=== PATIENT | male | born 1945 | race Caucasian/White ===

== ENCOUNTER 2018-10-20 08:30 | Inpatient (IN) | payer MEDICARE, MEDICAID ==
[~2018-10-20] VITALS: Ht 170.2 cm; Wt 56.2 kg
[2018-10-20 08:30] VITALS: BP 158/92
[~2018-10-20 08:30] MED LIST: ADULT LOW DOSE81 MG PO; ASPIRIN325 PO; ATIVAN1 MG PO; BRINTELLIX10 MG PO; BRINTELLIX20 MG PO; BUSPIRONE HCL10 MG PO; CELEXA40 MG PO; CENTRUM SILVER1 EAC2 PO; CIPRO500 MG PO; CLARITIN10 MG PO; COMBIVENT INH; COMBIVENT RESPIM4 GM INH; DILTIAZEM 24HR360 M1 PO; DIPHENHIST50 MG PO; FENTANYL 1100 MCG/HR TRANSDERM; FENTANYL PA50 MCG/HR TRANSDERM; FLAGYL500 MG PO; FLOMAX0.4 MG PO; FLONASE 0.05%50 MCG NASAL; MIRALAX17 GM PO; MIRALAX255 GM PO; NASONEX17 GM NASAL; NICOTINE TRANSD21 M1 TRANSDERM; OMEGA-31000 M1 PO; PERCOCET 10-321 EACH PO; PERCOCET 7.5-31 EACH PO; PLAVIX 75 MG TA75 M1 PO; PRAVACHOL40 MG; PRAVACHOL40 MG PO; SENNA-DOCUSATE1 EACH PO; ZANAFLEX4 MG PO; ZANTAC 150MG T150 MG PO; ZOFRAN ODT4 MG PO
[2018-10-20 08:44] LABS: ABSOLUTE BASOPHILS 0.1 thou/uL (0.0-0.2); ABSOLUTE EOSINOPHILS 0.1 thou/uL (0.0-0.7); ABSOLUTE MONOCYTES 0.9 thou/uL (0.0-1.2); ABSOLUTE NEUTROPHILS 11.1 thou/uL (1.6-8.1); BASOPHILS 0.9 %; EOSINOPHILS 1.1 %; HEMATOCRIT 34.9 % (42.0-52.0); HEMOGLOBIN 11.9 gm/dL (14.0-18.0); LYMPHOCYTES 7.4 %; MCH 30.9 pg (26.0-34.0); MCHC 34.2 g/dL (28.0-37.0); MCV 90.3 fL (80.0-100.0); MONOCYTES 6.6 %; MPV 5.9 fl. (7.2-11.1); NUCLEATED RBCS 0 /100WBC; PLATELET COUNT* 183 thou/uL (150-400); RBC 3.86 mil/uL (4.50-6.00); RDW-CV 15.2 % (10.5-14.5); WBC 13.3 thou/uL (4.0-11.0)
[2018-10-20 08:52] LABS: ANION GAP 7 mmol/L (7-16); BUN 11 mg/dL (7-18); CALCIUM 9.2 mg/dL (8.5-10.1); CHLORIDE 93 mmol/L (98-107); CO2 29 mmol/L (21-32); GLUCOSE 127 mg/dL (70-99); POTASSIUM 3.6 mmol/L (3.5-5.1); SODIUM 129 mmol/L (136-145)
[2018-10-20 09:03] LABS: ALBUMIN 3.9 g/dL (3.4-5.0); LIPASE 75 U/L (73-393); SGOT 14 U/L (15-37); SGPT 19 U/L (30-65); TOTAL BILIRUBIN 0.5 mg/dL (<0.1-1.0); TOTAL PROTEIN 7.8 g/dL (6.4-8.2); TROPONIN-I LEVEL <0.06 ng/mL (<0.06)
[2018-10-20] MEDS ORDERED: DURAGESIC1 EAC3 TRANSDERM (09:11)
[2018-10-20] MEDS ORDERED: PERCOCET 10-321 EACH PO (09:12)
[2018-10-20 09:14] LABS: ALKALINE PHOSPHATASE 93 U/L (46-116)
[2018-10-20] MEDS ORDERED: ZANAFLEX4 MG PO (09:14)
[2018-10-20] MEDS ORDERED: FLOMAX0.4 MG PO (09:14)
[2018-10-20] MEDS ORDERED: PRAVACHOL40 MG PO (09:15)
[2018-10-20] MEDS ORDERED: BUSPIRONE HCL10 MG PO (09:15)
[2018-10-20] MEDS ORDERED: TAZTIA XT360 M1 PO (09:16)
[2018-10-20] MEDS ORDERED: ZANTAC 150MG T150 MG PO (09:17)
[2018-10-20] MEDS ORDERED: COMBIVENT INH (09:17)
[2018-10-20] MEDS ORDERED: BRINTELLIX20 MG PO (09:17)
[2018-10-20] MEDS ORDERED: ZOFRAN ODT4 MG PO (09:18)
[2018-10-20] MEDS ORDERED: FLONASE 0.05%50 MCG NASAL (09:18)
[2018-10-20 10:32] LABS: URINE BILIRUBIN NEGATIVE (Negative); URINE BLOOD TRACE (Negative); URINE CLARITY CLEAR; URINE COLOR YELLOW; URINE GLUCOSE-RANDOM NEGATIVE (Negative); URINE KETONES NEGATIVE (Negative); URINE LEUKOCYTES-REFLEX NEGATIVE (Negative); URINE NITRITE-REFLEX NEGATIVE (Negative); URINE PROTEIN NEGATIVE (Negative); URINE SPECIFIC GRAVITY <= 1.005 (1.005-1.030); URINE UROBILINOGEN 0.2 E.U./dl (0.2-1.0)
[2018-10-20 12:53] VITALS: BP 149/76
[2018-10-20 13:00] VITALS: BP 161/72
[2018-10-20 17:38] VITALS: BP 170/67
[2018-10-20 19:40] VITALS: BP 136/60
[2018-10-21] VITALS (7 sets, daily range): BP systolic 133–176; BP diastolic 56–80
[2018-10-21 04:39] LABS: ALBUMIN 3.3 g/dL (3.4-5.0); CALCIUM 8.7 mg/dL (8.5-10.1); CREATININE 0.7 mg/dL (0.6-1.3); POTASSIUM 3.6 mmol/L (3.5-5.1); TOTAL BILIRUBIN 0.5 mg/dL (<0.1-1.0); TOTAL PROTEIN 6.8 g/dL (6.4-8.2)
[2018-10-21 12:24] LABS: ABSOLUTE BASOPHILS 0.1 thou/uL (0.0-0.2); ABSOLUTE EOSINOPHILS 0.1 thou/uL (0.0-0.7); ABSOLUTE LYMPHOCYTES 1.2 thou/uL (0.8-5.3); ABSOLUTE MONOCYTES 0.5 thou/uL (0.0-1.2); EOSINOPHILS 1.7 %; HEMATOCRIT 36.3 % (42.0-52.0); HEMOGLOBIN 12.2 gm/dL (14.0-18.0); LYMPHOCYTES 17.8 %; MCH 30.8 pg (26.0-34.0); MCHC 33.7 g/dL (28.0-37.0); MCV 91.6 fL (80.0-100.0); MONOCYTES 7.6 %; MPV 6.6 fl. (7.2-11.1); NUCLEATED RBCS 0 /100WBC; PLATELET COUNT* 167 thou/uL (150-400); POLYS 71.9 %; RBC 3.96 mil/uL (4.50-6.00); RDW-CV 14.8 % (10.5-14.5); WBC 6.9 thou/uL (4.0-11.0)
--- NOTE | 2018-10-21 16:10 | EKG ---
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 Administrator: MS : 1945 Requested By: Kush Garzon Order Number: [id number] MD: Mason Lewis Measurements Intervals Taylor Rate: 123 P: CT: QRS: -37 QRSD: 97 T: 107 QT: 353 QTc: 505 Interpretive Statements Atrial fibrillation LVH with secondary repolarization abnormality Possible anterior infarct, age indeterminate Prolonged QT interval Baseline wander in lead(s) III,aVL Compared to ECG 09/27/2015 08:14:10 Left ventricular hypertrophy now present Early repolarization now present Myocardial infarct finding now present Prolonged QT interval now present Sinus rhythm no longer present Possible ischemia no longer present Electronically Signed On 10-21-2018 16:09:50 CDT by Mason Lewis [email or web address] <ELECTRONICALLY SIGNED> By: Mason Lewis MD, [facility] 10/21/18 1609 7 7 Mason Lewis MD, [facility] /EPI
[2018-10-22 00:41] VITALS: BP 182/70
[2018-10-22 04:54] LABS: ABSOLUTE EOSINOPHILS 0.3 thou/uL (0.0-0.7); ABSOLUTE LYMPHOCYTES 1.3 thou/uL (0.8-5.3); ABSOLUTE MONOCYTES 0.5 thou/uL (0.0-1.2); ABSOLUTE NEUTROPHILS 3.7 thou/uL (1.6-8.1); BASOPHILS 0.8 %; EOSINOPHILS 4.4 %; HEMATOCRIT 32.6 % (42.0-52.0); LYMPHOCYTES 22.7 %; MCH 30.5 pg (26.0-34.0); MCHC 33.7 g/dL (28.0-37.0); MCV 90.5 fL (80.0-100.0); MONOCYTES 8.5 %; MPV 6.6 fl. (7.2-11.1); NUCLEATED RBCS 0 /100WBC; PLATELET COUNT* 156 thou/uL (150-400); POLYS 63.6 %; RDW-CV 15.1 % (10.5-14.5); WBC 5.8 thou/uL (4.0-11.0)
[2018-10-22 05:10] VITALS: BP 126/85
[2018-10-22 05:33] LABS: ALBUMIN 3.4 g/dL (3.4-5.0); CALCIUM 8.4 mg/dL (8.5-10.1); CREATININE 0.8 mg/dL (0.6-1.3); POTASSIUM 3.6 mmol/L (3.5-5.1); TOTAL BILIRUBIN 0.4 mg/dL (<0.1-1.0); TOTAL PROTEIN 6.8 g/dL (6.4-8.2)
[2018-10-22 07:00] VITALS: BP 173/98
[2018-10-22 11:30] VITALS: BP 122/60
--- NOTE | 2018-10-22 14:18 | 2DMMODE ---
[place] [address] 2 D/M-MODE ECHOCARDIOGRAM Name: WILLIAM ENCARNACION Room: [address] IN [facility]#: [id number] Admission: 10/20/18 Attend Phys: Terry Greene Discharge: Date of : 49 Date of Service: 10/22/18 1418 Report #: [id number] THIS REPORT FOR: //name// APPROVED REPORT Study performed: 10/22/2018 11:25:25 EXAM: Comprehensive 2D, Doppler, and color-flow Echocardiogram Patient Location: In-Patient Room #: [facility] Status: routine BSA: 1.65 HR: 63 bpm BP: 173/98 mmHg Rhythm: NSR Other Information Study Quality: Good Indications Aortic Valve Disease Atrial Fibrillation 2D Dimensions IVSd: 11.69 (7-11mm) LVOT Diam: 20.41 (18-24mm) LVDd: 40.20 mm PWd: 10.76 (7-11mm) Ascending Ao: 37.33 (22-36mm) LVDs: 29.05 (25-40mm) Aortic Root: 38.14 mm Volumes Left Atrial Volume (Systole) LA ESV Index: 28.80 mL/m2 Aortic Valve AoV Peak [place].: 4.30 m/s AO Peak Gr.: 73.90 mmHg LVOT Max P.07 mmHg AO Mean Gr.: 44.23 mmHg LVOT Mean P.46 mmHg LVOT Max V: 0.88 m/s AO V2 VTI: 97.56 cm LVOT Mean V: 0.55 m/s MALINDA (VTI): 0.71 cm2 LVOT V1 VTI: 21.26 cm AI [place]: 1.04 m/s2 AI PHT: 822.29 [place] [address] 2 D/M-MODE ECHOCARDIOGRAM Name: WILLIAM ENCARNACION Room: [address] IN .#: [id number] Admission: 10/20/18 Attend Phys: Terry Greene Discharge: Date of : 49 Date of Service: 10/22/18 1418 Report #: [id number] MV Mean Gr.: 1.34 mmHg E/A Ratio: 0.68 MV Decel. Time: 336.17 ms MV E Max [place].: 0.64 m/s MV PHT: 97.49 ms MVA (PHT): 2.26 cm2 TDI E/Lateral E': 7.11 E/Medial E': 10.67 Medial E' [place].: 0.06 m/s Lateral E' Rolando.: 0.09 m/s Tricuspid Valve RAP Estimate: 5.00 mmHg TR Peak Gr.: 31.88 mmHg RVSP: 36.00 mmHg PA Pressure: 36.00 mmHg Left Ventricle The left ventricle is normal size. There is anteroapical hypokinesis. Mild to moderate concentric left ventricular hypertrophy. The left ventricular systolic function is normal. The left ventricular ejection fraction is within the normal range. LVEF is 50-55%. Grade I - abnormal relaxation pattern. Right Ventricle The right ventricle is normal size. The right ventricular systolic function is normal. Atria The left atrium size is normal. The right atrium size is normal. Aortic Valve Severe aortic valve sclerosis. Mild aortic regurgitation. Severe aortic stenosis. Peak gradient of 75 mmHg Mitral Valve There is mitral annular calcification. Trace mitral regurgitation. No evidence of mitral valve stenosis. Tricuspid Valve The tricuspid valve is normal in structure. Trace tricuspid regurgitation. Mild pulmonary hypertension. Pulmonic Valve The pulmonary valve is normal in structure. There is no pulmonic [place] [address] 2 D/M-MODE ECHOCARDIOGRAM Name: WILLIAM ENCARNACION Room: [address]#: [id number] Admission: 10/20/18 Attend Phys: Terry Greene Discharge: Date of : 49 Date of Service: 10/22/18 1418 Report #: [id number] Great Vessels The aortic root is normal in size. IVC is normal in size and collapses >50% with inspiration. Pericardium There is no pericardial effusion. <Conclusion> The left ventricle is normal size. Mild to moderate concentric left ventricular hypertrophy. The left ventricular systolic function is normal. The left ventricular ejection fraction is within the normal range. LVEF is 50-55%. Grade I - abnormal relaxation pattern. The right ventricle is normal size. The left atrium size is normal. Severe aortic valve sclerosis. Mild aortic regurgitation. Severe aortic stenosis. Peak gradient of 75 mmHg There is mitral annular calcification. Trace mitral regurgitation. IVC is normal in size and collapses >50% with inspiration. There is no pericardial effusion. There is anteroapical hypokinesis. <ELECTRONICALLY SIGNED> By: Mason Lewis MD, FACC 10/22/18 1418 1418 1418 Mason Lewis MD, FACC /INF
[2018-10-22 15:37] LABS: CHOLESTEROL 133 mg/dL (<200); HDL CHOLESTEROL 55 mg/dL (>40); LDL CHOLESTEROL 67 mg/dL (<100); SERUM ASSESSMENT Clear; TC:HDL 2.4 Ratio (Not establshd); TRIGLYCERIDE 56 mg/dL (<150); VLDL 11 mg/dL (<40)
[2018-10-22 16:00] VITALS: BP 133/64
--- NOTE | 2018-10-22 18:17 | EKG ---
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1945 Requested By: Genaro Renae Order Number: [id number] Reading MD: Sridhar Hills Measurements Intervals [place] Rate: 63 P: [place]: QRS: -32 QRSD: 96 T: 90 QT: 500 QTc: 512 Interpretive Statements Atrial flutter with predominant 4:1 AV block Left ventricular hypertrophy with repolarization abnormalities Prolonged QT interval Compared to ECG 10/20/2018 08:38:03 Atrial fibrillation no longer present Electronically Signed On 10-22-2018 18:17:30 CDT by Sridhar Hills [email or web address] <ELECTRONICALLY SIGNED> By: Sridhar Hills MD, [facility] 10/22/18 1817 0556 0556 Sridhar Hills MD, [facility] /EPI
[2018-10-22 20:00] VITALS: BP 104/68
[2018-10-23] VITALS (18 sets, daily range): BP systolic 89–179; BP diastolic 40–81
--- NOTE | 2018-10-23 16:46 | EKG ---
[place] [address] ELECTROCARDIOGRAM REPORT Name: WILLIAM ENCARNACION Room: [address] ADM IN .R.#: [id number] Admission: 10/20/18 Attend Phys: Geraldine Esteban Discharge: Date of : 49 Report #: [id number] THIS REPORT FOR: //name// [facility] [place] [facility] Test Date: 2018-10-23 Test Time: 14:30:21 Pat Name: WILLIAM ENCARNACION Department: Room: [address] Gender: M Strike Planning Applications: : 1945 Requested By: Mason Lewis Order Number: [id number] Kelley MD: Mason Lewis Measurements Intervals [place] Rate: 46 P: 10 ID: 181 QRS: -21 QRSD: 97 T: 78 QT: 530 QTc: 464 Interpretive Statements Sinus bradycardia Probable LVH with secondary repol abnrm Compared to ECG 10/22/2018 05:56:57 Atrial flutter no longer present AV block, advanced (high-grade) no longer present Prolonged QT interval no longer present Electronically Signed On 10-23-2018 16:46:25 CDT by Mason Lewis [email or web address] <ELECTRONICALLY SIGNED> By: Mason Lewis MD, [facility] 10/23/18 1646 1430 1430 Mason Lewis MD, [facility] /EPI
[2018-10-24] VITALS (9 sets, daily range): BP systolic 102–192; BP diastolic 40–108
[2018-10-24 05:03] LABS: HEMATOCRIT 31.2 % (42.0-52.0); HEMOGLOBIN 10.5 gm/dL (14.0-18.0); MCH 30.6 pg (26.0-34.0); MCHC 33.6 g/dL (28.0-37.0); MCV 91.2 fL (80.0-100.0); MPV 6.5 fl. (7.2-11.1); RBC 3.42 mil/uL (4.50-6.00); RDW-CV 15.2 % (10.5-14.5); WBC 6.6 thou/uL (4.0-11.0)
[2018-10-24 05:31] LABS: ALBUMIN 3.1 g/dL (3.4-5.0); CREATININE 0.8 mg/dL (0.6-1.3); TOTAL BILIRUBIN 0.4 mg/dL (<0.1-1.0); TOTAL PROTEIN 6.1 g/dL (6.4-8.2)
--- NOTE | 2018-10-24 10:50 | EKG ---
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1945 Requested By: Claritza Aragon Order Number: [id number] Reading MD: Mason Lewis Measurements Intervals [place] Rate: 127 P: [place]: QRS: -40 QRSD: 98 T: 107 QT: 340 QTc: 495 Interpretive Statements Atrial flutter with predominantly 2:1 block LVH with secondary repolarization abnormality Anterior Q waves, possibly due to LVH Compared to ECG 10/23/2018 14:30:21 Q waves now present Sinus bradycardia no longer present Electronically Signed On 10-24-2018 10:50:18 CDT by Mason Lewis [email or web address] <ELECTRONICALLY SIGNED> By: Mason Lewis MD, [facility] 10/24/18 1050 6 6 Mason Lewis MD, [facility] /EPI
--- NOTE | 2018-10-24 15:44 | CARD ---
[address] [address] CARDIAC CATH REPORT Name: WILLIAM ENCARNACION Room: [address] IN [facility]#: [id number] Admission: 10/20/18 Attend Phys: Geraldine Esteban Discharge: Date of : 49 Report #: [id number] THIS REPORT FOR: //name// APPROVED REPORT Study performed: 10/23/2018 09:01:36 Patient Details The patient is a 73 year-old male Event Personnel Mason Lewis Computer Terminal Operator, Jaylyn Fernández RN Photoengraving Proofer Apprentice, Germán Charles LOGISTICS MANAGEMENT SPECIALIST Scrub, Estelle Carrillo RTR Monitor Procedures Performed Art Access - R femoral artery* selective coronary arteriography ; ATIYA Place w/wo Plasty Single DIAG [id number] Indication Non-STEMI Risk Factors Peripheral Vascular Disease, Hypercholesterolemia, Hypertension Admission/Lab Medications/Medications given during procedure Oxygen Nasal cannula 2 l per min, Midazolam (Versed) IV 3 mg total, Fentanyl IV 125 mcg total, Lidocaine Subcut 16 ml, Angiomax IV 8 mg per kg, Angiomax Drip IV 19.7 ml per hr, Nitroglycerin IA 200 mcg, Hydralazine (Apresoline) IV 20 mg, Plavix PO 600 mg, Aspirin PO 162 mg Procedure Narrative The patient was brought electively to the Cardiac Catheterization Laboratory and was prepped and draped in a sterile manner. The right femoral was infiltrated with 2% Lidocaine subcutaneous anesthesia. A [place] 6 FR sheath was inserted into the right femoral artery. Coronary angiography was performed using coronary diagnostic catheters. The right coronary system was accessed and visualized with a 6F JR4 catheter. The left coronary system was accessed and visualized with a 6F JL4 catheter. The patient tolerated the procedure well and there were no complications associated with the procedure. Patient demonstrated severe peripheral vascular disease and access was complicated as there was severe calcification tortuosity and stenosis throughout the aortoiliac [place] [address] CARDIAC CATH REPORT Name: WILLIAM ENCARNACION Room: [address]#: [id number] Admission: 10/20/18 Attend Phys: Geraldine Esteban Discharge: Date of : 49 Report #: [id number] ultimately able to access the central aorta and aortic root Utilizing an angled Glidewire and a JR4 diagnostic catheter for support Intraoperative Conscious Sedation Sedation start time: 11:29 Case end Time: 12:41 Fentanyl 125 mcg Versed 3 mg Fluoro Time: 22 minutes Dose: DAP 858115 cGycm2 1815 mGy Contrast Type and Amount: Visipaque 390 ml Coronary Angiography The patient's coronary anatomy is left dominant. Diagnostic Cath Left Main 0% narrowing LAD Tandem 40% mid LAD narrowings with 90% heavily calcified prominent first diagonal stenosis Circumflex 30% proximal narrowing with 40% narrowing of the proximal portion of the first marginal branch Right Coronary Nondominant vessel with 0% narrowing Left Ventriculography Left Ventriculography was not performed. Hemodynamics The aortic pressure is 203/75 mmHg with a mean of 118 mmHg. PCI Technique Lesion Anticoagulation was achieved with Angiomax. Patient was preloaded with Angiomax IV Bolus 8 mg per kg. Percutaneous coronary intervention was performed on the first diagnonal branch segment. The lesion stenosis prior to intervention was 90% with SUSAN 3 flow. A 6FR LAUNCHER JL 3.5 Guide Catheter was used to engage the LCA ostium. A ProwaterFlex 180CM Interventional Guidewire was used to cross the lesion. BALLOON DILATION A Balloon catheter Mini Trek RX 1.5 X 8 was inserted and inflated up to 8.00atm for 22seconds. Additional Inflation: 8.00atm for 11seconds. A 2nd Balloon catheter Trek RX 2.25 X 8 was inserted and inflated up 16 felicita for 16 seconds. Additional Inflation of 18 felicita for 14 seconds. A 3rd Balloon catheter NC Trek RX 2.5 X 8 was inserted and inflated up to 17 felicita for 16 seconds. Additional Inflation of 18 [place] [address] CARDIAC CATH REPORT Name: WILLIAM ENCARNACION Room: [address] IN [facility]#: [id number] Admission: 10/20/18 Attend Phys: Geraldine Esteban Discharge: Date of : 49 Report #: [id number] felicita for 10 seconds. STENT DEPLOYMENT A drug-eluting stent Kenroy RX Stent 2.0X8mm was inserted and inflated up to 18.00atm for 13seconds. Additional Inflation: 20.00atm for 12seconds. POST STENT DEPLOYMENT BALLOON DILATION A Balloon catheter NC Trek RX 2.5 X 8 was inserted and inflated up to 15.00atm for 10seconds. Additional Inflation: 16.00atm for 10seconds. Final angiography reveals 0 % stenosis with SUSAN 3 flow. Conclusion #1 significant coronary artery disease characterized by following: A tandem 40% mid LAD narrowings with 90% heavily calcified proximal first diagonal stenosis B 30% proximal circumflex proximal narrowing with 40% first marginal narrowing, this being a dominant vessel C 0 percent narrowing of the left main and nondominant right coronary artery #2 significant systolic hypertension #3 successful percutaneous coronary intervention with deployment of a drug-eluting stent at site of 90% heavily calcified first diagonal stenosis with 0% residual narrowing and SUSAN-3 flow the distal vessel #4 severe peripheral vascular disease complicating access to the central aorta and aortic root Recommendations Cardiac Risk Reduction Program Aggressive Medical Therapy Medications Administered Aspirin (any) [place] [address] CARDIAC CATH REPORT Name: WILLIAM ENCARNACION Room: [address] IN [facility]#: [id number] Admission: 10/20/18 Attend Phys: Geraldine Esteban Discharge: Date of : 49 Report #: [id number] Diagnostic Cath Approved by: Mason Lewis MD Date/Time: 10/24/2018 15:42:32 <ELECTRONICALLY SIGNED> By: Mason Lewis MD, [facility] 10/24/18 1543 1543 1543Jonathaniel Lewis MD, [facility] /INF
[2018-10-25] VITALS: BP 125/52
[2018-10-25 04:00] VITALS: BP 117/63
[2018-10-25 08:00] VITALS: BP 171/68
--- NOTE | 2018-10-25 09:57 | EKG ---
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 <ELECTRONICALLY SIGNED> By: Cee Burnham MD, [facility] 10/25/18956 8 8 Cee Burnham MD, [facility] /EPI
--- NOTE | 2018-10-25 09:57 | EKG ---
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1945 Requested By: Claritza Aragon Order Number: [id number] Reading MD: Omar Burnham Measurements Intervals [place] Rate: 92 P: 0 [place]: QRS: -35 QRSD: 107 T: 184 QT: 375 QTc: 464 Interpretive Statements Ventricular-paced complexes No further analysis attempted due to paced rhythm Compared to ECG 10/24/2018 08:17:54 Atrial flutter no longer present 2:1 AV block no longer present Left ventricular hypertrophy no longer present Early repolarization no longer present Q waves no longer present Electronically Signed On 10-25-2018 9:57:21 CDT by Omar Burnham [email or web address] <ELECTRONICALLY SIGNED> By: Cee Burnham MD, [facility] 10/25/18956 5 5 Cee Burnham MD, [facility] /EPI
[2018-10-25 10:19] VITALS: BP 103/40
[2018-10-25 11:43] VITALS: BP 164/71
[2018-10-25] MEDS ORDERED: PACERONE 200 M200 M1 PO (11:53)
[2018-10-25] MEDS ORDERED: ASPIR 8181 MG PO (11:55)
[2018-10-25] MEDS ORDERED: PLAVIX 75 MG TA75 M1 PO (11:58)
[2018-10-25 12:12] VITALS: BP 103/40
--- NOTE | 2018-10-28 14:11 | CARD ---
[address] [address] CARDIAC CATH REPORT Name: WILLIAM ENCARNACION Room: [address] IN [facility]#: [id number] Admission: 10/20/18 Attend Phys: Geraldine Esteban Discharge: 10/25/18 Date of : 49 Report #: [id number] THIS REPORT FOR: //name// APPROVED REPORT Study performed: 10/24/2018 16:42:49 Patient Status: In-Patient Room #: 211 Event Personnel: Jaylyn Fernández RN Analysis Or Research Safety Inspector, Tresa Cosme Monitor, Eduar Ybarra (Alfa) Jeana Jackson Michael Outsole Leveler Exam: Insertion of Dual Chamber Permanent Pacemaker Indications: Sick Sinus Syndrome/Tachy Wilberto Syndrome The patient is a 73 year-old male with a history of atrial fibrillation and sick sinus syndrome. Conscious Sedation Start time: 1814 End Time: 1844 Fentanyl 100 mcg Versed 3 mg Implanted Devices: Biotronik Eluna 8 DRT ProMRI, model #089171, serial #[id number] dual-chamber pulse generator. Biotronik Solia S 53, model #261402, serial #[id number] ventricular lead. Biotronik Solia S 45, model #555256, serial #[id number] atrial lead. Procedure The patient underwent informed consent. We discussed the details of the procedure including the risks, which include, but not limited to bleeding, infection, vascular damage, cardiac perforation, and pneumothorax. He understood these risks and was willing to proceed. As such, he was brought to the EP/Cardiac Catheterization laboratory in a fasting and sedated state and prepped and draped in a sterile fashion, received IV antibiotics prior to initiation of the procedure and a venogram was performed showing patency of the left axillary vein. The patient underwent conscious sedation, with no related complications. The patient was brought to the EP/Cardiac Catheterization laboratory and the left chest and shoulder were prepped and draped in a sterile manner. During this case, Fluoroscopy and visipaque 10cc were used for imaging. The left subclavian region was infiltrated with 2% [place] [address] CARDIAC CATH REPORT Name: WILLIAM ENCARNACION Room: [address]#: [id number] Admission: 10/20/18 Attend Phys: Geraldine Esteban Discharge: 10/25/18 Date of : 49 Report #: [id number] subcutaneous anesthesia. A transverse incision was made in the left upper chest cavity. The subcutaneous pocket was formed via blunt dissection. Percutaneous venous access was achieved and an introducer sheath was inserted into the left Subclavian vein. Sheaths were positions using the modified Seldinger technique Through the introducer sheaths the atrial and ventricular lead wires were positioned in the right atrial appendage and right ventricular apex respectively. Utilizing fluoroscopic guidance, the atrial and ventricular lead wires were advanced over the wires and positioned in the right atria and right ventricle respectively. Capturing and sensing thresholds were verified. Electrode Parameters P Wave: 1.40 mV R Wave: 13.70 mV Atrial Threshold: 1.20 V at 0.40 ms Ventricular Threshold: 0.8 V at 0.40 ms Atrial Resistance: 507 ohms Ventricular Resistance: 547 ohms Lower pacing rate 60 bpm. Upper tracking rate 130 bpm. Mode: DDDR. Dual Chamber The atrial and ventricular leads were then secured using 0 silk sutures. The subcutaneous pocket was irrigated with ancef antibiotic solution.The atrial and ventricular leads were attached to the appropriate receptacles on the pulse generator and set screws firmly tightened to insure adequate contact and stability. Complications The patient tolerated the procedure well and there were no complications associated with the procedure. Findings Specimens Removed: No Conclusion 1. Sick sinus syndrome with paroxysmal atrial fibrillation. 2. Successful placement of a dual-chamber pacemaker with atrial and ventricular [place] [address] CARDIAC CATH REPORT Name: WILLIAM ENCARNACION Room: [address]#: [id number] Admission: 10/20/18 Attend Phys: Geraldine Esteban Discharge: 10/25/18 Date of : 49 Report #: [id number] 1. Follow-up site check in one week. 2. Follow-up pacemaker interrogation in one to 2 months. <ELECTRONICALLY SIGNED> By: Sridhar Hills MD, FACC 10/28/18 141 10 10Michaepepper Hills MD, FACC /INF
== END 2018-10-25 13:28 | disposition home or self-care (01) | DRG 242 ==
LOC: M.ERS 08:30 → M.TBA-ER 12:03 → M.2W 12:03
PROVIDERS: Family Medicine; Registered Nurse; ADMIT Internal Medicine
PROC: 027034Z Dilation of Coronary Artery, One Artery with Drug-eluting Intraluminal Device, Percutaneous Approach (ICD-10-PCS; principal; 2018-10-23)
PROC: 4A023N7 Measurement of Cardiac Sampling and Pressure, Left Heart, Percutaneous Approach (ICD-10-PCS; 2018-10-23)
PROC: B211YZZ Fluoroscopy of Multiple Coronary Arteries using Other Contrast (ICD-10-PCS; 2018-10-23)
PROC: 0JH606Z Insertion of Pacemaker, Dual Chamber into Chest Subcutaneous Tissue and Fascia, Open Approach (ICD-10-PCS; 2018-10-24)
PROC: 02HK3JZ Insertion of Pacemaker Lead into Right Ventricle, Percutaneous Approach (ICD-10-PCS; 2018-10-24)
PROC: 02H63JZ Insertion of Pacemaker Lead into Right Atrium, Percutaneous Approach (ICD-10-PCS; 2018-10-24)
DX: I21.4 Non-ST elevation (NSTEMI) myocardial infarction (principal); E43 Unspecified severe protein-calorie malnutrition; I71.00 Dissection of unspecified site of aorta; E87.1 Hypo-osmolality and hyponatremia; I74.5 Embolism and thrombosis of iliac artery; I48.92 Unspecified atrial flutter; Z68.1 Body mass index [BMI] 19.9 or less, adult; I49.5 Sick sinus syndrome; I25.10 Atherosclerotic heart disease of native coronary artery without angina pectoris; I10 Essential (primary) hypertension; E78.5 Hyperlipidemia, unspecified; G89.29 Other chronic pain; M54.9 Dorsalgia, unspecified; K59.09 Other constipation; K21.9 Gastro-esophageal reflux disease without esophagitis; F32.9 Major depressive disorder, single episode, unspecified; I35.0 Nonrheumatic aortic (valve) stenosis; I65.22 Occlusion and stenosis of left carotid artery; I48.0 Paroxysmal atrial fibrillation; N40.1 Benign prostatic hyperplasia with lower urinary tract symptoms; R33.8 Other retention of urine; F17.210 Nicotine dependence, cigarettes, uncomplicated; D72.829 Elevated white blood cell count, unspecified; D64.9 Anemia, unspecified; I73.9 Peripheral vascular disease, unspecified; K59.00 Constipation, unspecified; I70.1 Atherosclerosis of renal artery; E86.0 Dehydration; T39.95XA Adverse effect of unspecified nonopioid analgesic, antipyretic and antirheumatic, initial encounter; Y92.89 Other specified places as the place of occurrence of the external cause; Z88.2 Allergy status to sulfonamides; Z91.81 History of falling; Z88.8 Allergy status to other drugs, medicaments and biological substances; Z79.899 Other long term (current) drug therapy; Z82.49 Family history of ischemic heart disease and other diseases of the circulatory system; Z84.89 Family history of other specified conditions; Z82.3 Family history of stroke

== ENCOUNTER 2018-11-14 14:26 | Inpatient (IN) | payer MEDICARE, MEDICAID ==
[~2018-11-14] VITALS: Ht 162.6 cm; Wt 51.3 kg
[2018-11-14] VITALS (11 sets, daily range): BP systolic 104–139; BP diastolic 51–69
[~2018-11-14 14:26] MED LIST changes: +ASPIR 8181 MG PO; +DURAGESIC1 EAC3 TRANSDERM; +PACERONE 200 M200 M1 PO; +TAZTIA XT360 M1 PO
[2018-11-14] MEDS ORDERED: PRAVACHOL40 MG PO (14:41)
[2018-11-14 15:02] LABS: HEMATOCRIT 32.5 % (42.0-52.0); HEMOGLOBIN 11.2 gm/dL (14.0-18.0); MCH 31.1 pg (26.0-34.0); MCHC 34.5 g/dL (28.0-37.0); MCV 90.3 fL (80.0-100.0); MPV 6.1 fl. (7.2-11.1); RBC 3.6 mil/uL (4.50-6.00); RDW-CV 16.7 % (10.5-14.5); WBC 5.4 thou/uL (4.0-11.0)
[2018-11-14 15:09] LABS: CALCIUM 9.1 mg/dL (8.5-10.1); POTASSIUM 4.2 mmol/L (3.5-5.1)
--- NOTE | 2018-11-14 17:20 | CARD ---
[address] [address] CARDIAC CATH REPORT Name: WILLIAM ENCARNACION Room: [address] IN [facility]#: [id number] Admission: 11/14/18 Attend Phys: Sridhar Hills MD Discharge: Date of : 49 Report #: [id number] THIS REPORT FOR: //name// APPROVED REPORT Study performed: 11/14/2018 15:44:07 Patient Status: In-Patient Room #: Exam: explantation of a dual lead pacemaker system. Indications: pacemaker generator erosion secondary to hematoma. The patient is a 73 year-old male with a history of recent dual-chamber pacemaker placement for sick sinus syndrome. Conscious Sedation Fentanyl 75.0 mcg Versed 2.0 mg PPM Rremoval Explanted Devices: Biotronik Eluna 8 DR Tpro-MRI dual-chamber pacing device Biotronik Solia S 53 atrial lead. Biotronik Solia S 60 ventricular lead. Procedure The patient underwent informed consent. We discussed the details of the procedure including the risks, which include, but not limited to bleeding, infection, vascular damage, cardiac perforation, and pneumothorax. After informed consent was obtained the patient was brought to the cardiac pacemaker lab. The area of the left chest was prepped and draped in sterile fashion. Local anesthesia was achieved with 1% lidocaine. The deep garcia did pacemaker incision was extended laterally and medially with a 15 blade scalpel. The device was easily explanted. The device was detached from the atrial and ventricular leads and discarded. The atrial and ventricular leads were then removed after detaching the leads from the pocket without difficulty. The pocket was then flushed with antibiotic solution. A sterile Aquaphor dressing was placed within the device pocket. The device pocket loosely covered with a bandage. The patient tolerated the procedure well without complication. Conclusion 1. Device erosion secondary to device pocket hematoma. 2. Device explantation with removal of the atrial [place] [address] CARDIAC CATH REPORT Name: WILLIAM ENCARNACION Room: [address] IN [facility]#: [id number] Admission: 11/14/18 Attend Phys: Sridhar Hills MD Discharge: Date of : 49 Report #: [id number] Recommendations 1. Will follow-up with wound clinic as scheduled. 2. Follow-up cardiology office 2-4 weeks. 3. Admitting for IV antibiotics overnight. 4. By mouth antibiotics times one week. <ELECTRONICALLY SIGNED> By: Sridhar Hills MD, [facility] 11/14/181718 18 18Micmichelle Hills MD, FACC /INF
--- NOTE | 2018-11-14 18:50 | NUR ---
PATIENT ADMITTED TO TELEMETRY ROOM 201. POST PACEMAKER REMOVAL. SINUS RHYTHM/ATRIAL FLUTTER ON MONITOR. VSS. CLWR. HOURLY ROUNDING IN PLACE FOR PATIENT SAFETY.
[2018-11-15] VITALS: BP 132/54; BP 166/69
--- NOTE | 2018-11-15 02:18 | NUR ---
PT ALERT ORIENTED. UP AD BRIAN. L CHEST DRSG INTACT WITH OLD BLOOD CIRCLED. NO FEVER THIS SHIFT. TELEMETRY SHOWS SB 1ST DEGREE AVB WITH A-FIB LASTING A FEW MINUTES WITH RETURN TO SB. DENIES PAIN 02/27. FENTANYL PATCH ON R SHOULDER.
[2018-11-15 04:00] VITALS: BP 155/62
[2018-11-15 07:52] VITALS: BP 167/73
--- NOTE | 2018-11-15 08:24 | NUR ---
NSR WITH 1ST DEGREE AV BLOCK. INCISION DRESSING INTACT. VSS. HOURLY ROUNDING FOR PATIENT SAFETY. ASSESSMENT CHARTED COMPLETED. CLWR.
[2018-11-15] MEDS ORDERED: KEFLEX500 M1 PO (11:34)
[2018-11-15 11:38] VITALS: BP 147/67
--- NOTE | 2018-11-15 11:39 | H ---
[place] [address] HISTORY AND PHYSICAL Name: WILLIAM ENCARNACION Room: [address] IN ..#: [id number] Admission: 11/14/18 Attend Phys: Sridhar Hills MD Discharge: Date of : 49 Report #: [id number] THIS REPORT FOR: //name// CC: Sridhar Jacobsen DATE OF SERVICE: 11/14/2018 INDICATION FOR ADMISSION: Pacemaker generator erosion. HISTORY OF PRESENT ILLNESS: The patient is a very pleasant 73-year-old gentleman who underwent permanent pacemaker placement on 10/24/2018 for sick sinus syndrome and atrial fibrillation. Postprocedure, the patient developed a moderate hematoma. The patient was followed through the office weekly. The hematoma appeared to be resolving. However, at the third followup visit, the patient's reported serosanguineous oozing from the pacemaker pocket. On cleaning the device site, there was erosion of the pocket with visualization of the device within the pocket. The patient was therefore brought into the hospital for device explantation and removal of the atrial and ventricular leads, which the patient tolerated without complication. The patient is being admitted for IV antibiotics and followup. He remains hemodynamically stable at this time. The patient has a history of coronary artery disease with recent dqn-ME-dlrnsxsey myocardial infarction. The patient had percutaneous coronary intervention with drug-eluting stent placement in a 90% heavily calcified first diagonal branch. Presently, he is having no angina. The patient also has a history of moderate aortic stenosis. Presently, he denies any chest pain or shortness of breath. PAST MEDICAL HISTORY: 1. Coronary artery disease. 2. Hypertension. 3. Hyperlipidemia. 4. Aortic stenosis. 5. History of carotid endarterectomy. 6. BPH. 7. GERD. 8. History of back surgery in 2000. CURRENT MEDICATIONS: Amiodarone 200 mg b.i.d., aspirin 81 mg daily, bupropion 10 mg 1-1/2 tablets b.i.d., Plavix 75 mg daily, diltiazem 360 mg daily, fentanyl patch 100 mcg q. 3 days, Flonase nasal spray 2 sprays b.i.d., Combivent inhaler q.i.d., Zofran 4 mg sublingual p.r.n. q. 8 hours, Percocet 10/325 mg b.i.d. p.r.n., pravastatin 40 mg at bedtime, Zantac 150 mg p.o. b.i.d., and Flomax 0.4 [place] [address] HISTORY AND PHYSICAL Name: WILLIAM ENCARNACION Room: [address] IN ..#: [id number] Admission: 11/14/18 Attend Phys: Sridhar Hills MD Discharge: Date of : 49 Report #: [id number] ALLERGIES: CODEINE, NUBAIN, SULFA, AND BACTRIM. FAMILY HISTORY: Positive for coronary artery disease. SOCIAL HISTORY: The patient smokes cigarettes daily. Alcohol use in the past. Dictation Ends Here <ELECTRONICALLY SIGNED> By: Sridhar Hills MD, FACC 11/15/18 1139 1733 1746[facility] MD, FACC /nt
--- NOTE | 2018-11-15 11:39 | H ---
[address] [address] HISTORY AND PHYSICAL Name: WILLIAM ENCARNACION Room: [address] IN .R.#: [id number] Admission: 11/14/18 Attend Phys: Sridhar Hills MD Discharge: Date of : 49 Report #: [id number] THIS REPORT FOR: //name// CC: Sridhar Jacobsen ADDENDUM SOCIAL HISTORY: The patient smokes daily. He does not drink alcohol. REVIEW OF SYSTEMS: The patient denies convulsions, seizures or focal paralysis. In general, there is no unexplained weight loss. He denies fevers. He is not having chest pain. He denies orthopnea. He has dyspnea without shortness of breath at rest. He denies melena, hematochezia, jaundice, or hepatitis. PHYSICAL EXAMINATION: VITAL SIGNS: Stable. Blood pressure is 129/59, pulse 71 and regular. GENERAL: This is a thin, pleasant gentleman in no distress. Mood and affect appropriate. HEENT: Extraocular muscles intact. Mucous membranes moist. NECK: Shows no jugular venous distention. There are no carotid bruits. CHEST: Reveals diminished breath sounds throughout without wheezes or rales. CARDIOVASCULAR: Reveals a regular rhythm. Grade 2/6 systolic ejection murmur. ABDOMEN: Reveals normal bowel sounds. The abdomen is soft and nontender. EXTREMITIES: Shows no edema. SKIN: Warm and dry. IMPRESSION AND RECOMMENDATIONS: 1. Pacemaker erosion, status post pacemaker removal with atrial and ventricular lead removal. The wound will be allowed to heal by secondary intention. The patient is being brought in to the hospital for IV antibiotics and will be sent home on p.o. antibiotics. We would consider possible device reimplantation in 2-4 weeks. 2. Sick sinus syndrome with history of paroxysmal atrial fibrillation and bradycardia. The patient is presently in sinus rhythm with a stable rhythm. We will watch on telemetry and make changes as clinically indicated. 3. Hypertension. Blood pressure adequately controlled on current regimen. 4. Dyslipidemia. Continue statin agent while in hospital. 5. Chronic tobacco use, cessation advised. 6. Coronary artery disease, presently stable. He is not having angina. 7. Aortic stenosis. Consider transcatheter aortic valve replacement [place] [id number] HISTORY AND PHYSICAL Name: WILLIAM ENCARNACION Room: [address]#: [id number] Admission: 11/14/18 Attend Phys: Sridhar Hills MD Discharge: Date of : 47 Report #: [id number] 8. Peripheral arterial disease, presently stable. 9. Hypertension. Blood pressure is stable on current medications. <ELECTRONICALLY SIGNED> By: Sridhar Hills MD, [facility] 11/15/18 1139 1737 1748[place] Effie Hills MD, FACC /nt
[2018-11-15 11:54] VITALS: BP 147/67
--- NOTE | 2018-11-16 10:14 | D ---
[facility] [address] [place] [address] DISCHARGE SUMMARY Name: WILLIAM ENCARNACION Room: [address]#: [id number] Admission: 11/14/18 Attend Phys: Sridhar Hills MD Discharge: 11/15/18 Date of : 49 Report #: [id number] THIS REPORT FOR: //name// CC: Mason Lewis MD [facility] Sridhar Jacobsen DO DATE OF SERVICE: 11/15/2018 DISCHARGE DIAGNOSES: 1. Pacemaker pocket erosion secondary to hematoma. 2. Sick sinus syndrome. 3. Paroxysmal atrial fibrillation. 4. Coronary artery disease with recent percutaneous coronary intervention. 5. Mild aortic stenosis. 6. Hypertension. 7. Hyperlipidemia. 8. Benign prostatic hypertrophy. 9. Gastroesophageal reflux disease. PROCEDURES DURING THE HOSPITALIZATION: Pacemaker explantation with atrial and ventricular lead removal. HOSPITAL COURSE: The patient was admitted electively after being found to have erosion of his pacemaker secondary to pocket hematoma. The patient was brought to the cardiac catheterization lab. The pacemaker was removed. The atrial and ventricular leads were removed. The patient was admitted to the hospital for IV antibiotics and remained stable throughout hospitalization. The wound is being packed with Aquacel and healing by secondary intention. The patient is being discharged in stable condition. DISCHARGE MEDICATIONS: 1. Amiodarone 200 mg b.i.d. 2. Aspirin 81 mg daily. 3. Bupropion 10 mg 1-1/2 tablets b.i.d. 4. Plavix 75 mg daily. 5. Diltiazem 360 mg daily. 6. Fentanyl patch 100 mcg every 3 days. 7. Flonase nasal spray 2 sprays b.i.d. 8. Combivent inhaler q.i.d. 9. Zofran 4 mg sublingual tablets every 8 hours p.r.n. 10. Percocet 10/325 one tablet b.i.d. p.r.n. 11. Pravastatin 40 mg at bedtime. 12. Zantac 150 mg b.i.d. 13. Flomax 0.4 [place] [address] DISCHARGE SUMMARY Name: WILLIAM ENCARNACION Room: [address]#: [id number] Admission: 11/14/18 Attend Phys: Sridhar Hills MD Discharge: 11/15/18 Date of : 47 Report #: [id number] DISPOSITION: The patient has been asked to follow up with the nurses in the office in 2 weeks for check of his wound. The patient has appointment to follow up with myself in early January. <ELECTRONICALLY SIGNED> By: Sridhar Hills MD, [facility] 11/16/18 1014 1210 1425[place] Effie Hills MD, FACC /nt
== END 2018-11-15 12:18 | disposition home or self-care (01) | DRG 261 ==
LOC: M.CL 14:26 → M.TBA-CV 16:52 → M.2W 16:58
PROVIDERS: ADMIT Internal Medicine Cardiovascular Disease
PROC: 02PA3MZ Removal of Cardiac Lead from Heart, Percutaneous Approach (ICD-10-PCS; principal; 2018-11-14)
PROC: 0JPT0PZ Removal of Cardiac Rhythm Related Device from Trunk Subcutaneous Tissue and Fascia, Open Approach (ICD-10-PCS; principal; 2018-11-14)
DX: T82.897A Other specified complication of cardiac prosthetic devices, implants and grafts, initial encounter (principal); E87.1 Hypo-osmolality and hyponatremia; L76.32 Postprocedural hematoma of skin and subcutaneous tissue following other procedure; I49.5 Sick sinus syndrome; I48.0 Paroxysmal atrial fibrillation; I10 Essential (primary) hypertension; E78.5 Hyperlipidemia, unspecified; F17.210 Nicotine dependence, cigarettes, uncomplicated; N40.0 Benign prostatic hyperplasia without lower urinary tract symptoms; K21.9 Gastro-esophageal reflux disease without esophagitis; Y83.8 Other surgical procedures as the cause of abnormal reaction of the patient, or of later complication, without mention of misadventure at the time of the procedure; I73.9 Peripheral vascular disease, unspecified; I35.0 Nonrheumatic aortic (valve) stenosis; I25.10 Atherosclerotic heart disease of native coronary artery without angina pectoris; Z79.82 Long term (current) use of aspirin; Z79.899 Other long term (current) drug therapy; Z79.01 Long term (current) use of anticoagulants; I25.2 Old myocardial infarction; Z95.5 Presence of coronary angioplasty implant and graft; Z88.2 Allergy status to sulfonamides; Z88.5 Allergy status to narcotic agent; Z88.8 Allergy status to other drugs, medicaments and biological substances; Z88.1 Allergy status to other antibiotic agents; Y92.89 Other specified places as the place of occurrence of the external cause

== ENCOUNTER → 2018-11-17 | Outpatient (CLI) | payer MEDICARE, MEDICAID ==
[~2018-11-17] MED LIST changes: +FUROSEMIDE 20 M20 MG PO; +KEFLEX500 M1 PO; +KLOR-CON 10 ER10 MEQ PO; +MIRALAX17 G1 PO
== END ==
LOC: M.WC 08:30
DX: T81.31XA Disruption of external operation (surgical) wound, not elsewhere classified, initial encounter (principal); L03.313 Cellulitis of chest wall; I25.10 Atherosclerotic heart disease of native coronary artery without angina pectoris; J43.9 Emphysema, unspecified; F17.200 Nicotine dependence, unspecified, uncomplicated; Z95.5 Presence of coronary angioplasty implant and graft; Z79.82 Long term (current) use of aspirin; Y92.89 Other specified places as the place of occurrence of the external cause; Y83.8 Other surgical procedures as the cause of abnormal reaction of the patient, or of later complication, without mention of misadventure at the time of the procedure

== ENCOUNTER → 2018-11-24 | Outpatient (CLI) | payer MEDICARE, MEDICAID | LOC: M.WC 05:08 | DX: T81.31XD Disruption of external operation (surgical) wound, not elsewhere classified, subsequent encounter (principal); L03.313 Cellulitis of chest wall; I25.10 Atherosclerotic heart disease of native coronary artery without angina pectoris; J43.9 Emphysema, unspecified; F17.200 Nicotine dependence, unspecified, uncomplicated; Y83.8 Other surgical procedures as the cause of abnormal reaction of the patient, or of later complication, without mention of misadventure at the time of the procedure ==

== ENCOUNTER 2018-11-30 22:09 | Inpatient (IN) | payer MEDICARE, MEDICAID ==
[~2018-11-30] VITALS: Ht 167.6 cm; Wt 57.3 kg
[~2018-11-30 22:09] MED LIST changes: -FUROSEMIDE 20 M20 MG PO; -KLOR-CON 10 ER10 MEQ PO; -MIRALAX17 G1 PO
[2018-11-30 22:44] LABS: ABSOLUTE BASOPHILS 0.1 thou/uL (0.0-0.2); ABSOLUTE EOSINOPHILS 0.2 thou/uL (0.0-0.7); ABSOLUTE LYMPHOCYTES 0.7 thou/uL (0.8-5.3); ABSOLUTE MONOCYTES 0.6 thou/uL (0.0-1.2); ABSOLUTE NEUTROPHILS 6.3 thou/uL (1.6-8.1); BASOPHILS 0.8 %; EOSINOPHILS 2.2 %; HEMATOCRIT 28.8 % (42.0-52.0); HEMOGLOBIN 10.1 gm/dL (14.0-18.0); LYMPHOCYTES 9.4 %; MCH 31.6 pg (26.0-34.0); MCV 90.1 fL (80.0-100.0); MONOCYTES 7.3 %; MPV 6.1 fl. (7.2-11.1); NUCLEATED RBCS 0 /100WBC; PLATELET COUNT* 201 thou/uL (150-400); POLYS 80.3 %; RBC 3.19 mil/uL (4.50-6.00); RDW-CV 16.4 % (10.5-14.5); WBC 7.8 thou/uL (4.0-11.0)
[2018-11-30 23:00] LABS: CALCIUM 8.2 mg/dL (8.5-10.1); CREATININE 1.1 mg/dL (0.6-1.3); POTASSIUM 4.6 mmol/L (3.5-5.1); PROTIME 10.7 Seconds (9.20-11.50)
[2018-11-30 23:11] LABS: ALBUMIN 3.6 g/dL (3.4-5.0); TOTAL BILIRUBIN 0.4 mg/dL (<0.1-1.0); TOTAL PROTEIN 6.9 g/dL (6.4-8.2)
[2018-11-30 23:14] LABS: URINE BILIRUBIN NEGATIVE (Negative); URINE BLOOD NEGATIVE (Negative); URINE CLARITY CLEAR; URINE COLOR YELLOW; URINE GLUCOSE-RANDOM NEGATIVE (Negative); URINE KETONES NEGATIVE (Negative); URINE LEUKOCYTES-REFLEX NEGATIVE (Negative); URINE NITRITE-REFLEX NEGATIVE (Negative); URINE PROTEIN NEGATIVE (Negative); URINE SPECIFIC GRAVITY <= 1.005 (1.005-1.030); URINE UROBILINOGEN 0.2 E.U./dl (0.2-1.0)
[2018-11-30 23:15] LABS: INFLUENZA A ANTIGEN Negative (Negative); INFLUENZA B ANTIGEN Negative (Negative)
[2018-11-30 23:25] LABS: BE -1.3 mmol/L (-2 to +3); PCO2 38.8 mmHg (35.0-45.0); PO2 110.7 mmHg (75.0-100.0); pH 7.397 (7.340-7.450)
[2018-12-01] VITALS (34 sets, daily range): BP systolic 95–168; BP diastolic 40–90
[2018-12-01 07:52] LABS: CALCIUM 8.7 mg/dL (8.5-10.1); CREATININE 0.8 mg/dL (0.6-1.3); MAGNESIUM 1.9 mg/dL (1.8-2.4); POTASSIUM 4.3 mmol/L (3.5-5.1)
--- NOTE | 2018-12-01 11:02 | NUR ---
CM SPEAKING WITH PT.WHEN ENTERED. PT.SAID HE HAS A CANE AND WALKER. DOESN'T USALLY NEED TO USE THEM. HE DOES NOT HAVE O2. HE IS FAIRLY INDEPENDENT MOST OF THE TIME. NO HX OF HH. SAID SHE HELPS HIM SOME WHEN HE SHOWERS. CM WILL FOLLOW FOR DISCHARGE.
--- NOTE | 2018-12-01 16:49 | EKG ---
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 Internship: [place] : 1945 Requested By: Nirmala Bucio Order Number: [id number] MD: Manoj Vázquez Measurements Intervals [place] Rate: 69 P: -39 DE: 229 QRS: -24 QRSD: 107 T: 85 QT: 424 QTc: 455 Interpretive Statements Sinus rhythm Atrial premature complex Prolonged DE interval LVH with secondary repolarization abnormality Anterior Q waves, possibly due to LVH Compared to ECG 10/25/2018 08:19:59 First degree AV block now present Left ventricular hypertrophy now present Ventricular-paced complex(es) or rhythm no longer present Electronically Signed On 12-01-2018 16:49:03 CDT by Manoj Vázquez [email or web address] <ELECTRONICALLY SIGNED> By: Manoj Vázquez MD, FACC 12/01/18 1649 13 Maonj Vázquez MD, FACC /EPI
--- NOTE | 2018-12-01 16:51 | EKG ---
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 12/01/18 1651 0043 0043 Manoj Vázquez MD, FACC /EPI
--- NOTE | 2018-12-01 17:18 | NUR ---
PATIENT REMAINS OFF BIPAP SINCE EARLY AM. TAKING PO WELL USING 3 URINALS DIURESING WELL. GAVE PERCOCET ONCE FOR LOW BACK PAIN. DENIES SOA. APPEARS COMFORTABLE.
[2018-12-02] VITALS (11 sets, daily range): BP systolic 116–133; BP diastolic 46–77
[2018-12-02 00:42] LABS: HEMATOCRIT 29.9 % (42.0-52.0); HEMOGLOBIN 10.2 gm/dL (14.0-18.0); MCHC 34.3 g/dL (28.0-37.0); MCV 90.6 fL (80.0-100.0); MPV 6.7 fl. (7.2-11.1); RBC 3.3 mil/uL (4.50-6.00); WBC 8.5 thou/uL (4.0-11.0)
[2018-12-02 00:50] LABS: CALCIUM 8.6 mg/dL (8.5-10.1); MAGNESIUM 1.9 mg/dL (1.8-2.4); POTASSIUM 3.6 mmol/L (3.5-5.1)
--- NOTE | 2018-12-02 05:20 | NUR ---
Pt rested well overnight. Medicated once for c/o chronic back pain. States he takes Miralax daily at home for constipation, and would like to start taking it today while in hospital. O2 weaned from 5L to 2L per NC; O2 sats mid to upper 90s. Reports feeling "much better" than when he was admitted to hospital. VSS. Currently SR with 1st degree AVB per monitor, HR 60s, but has been in Afib for much of the shift. States he is hopeful of being discharged soon. Will continue to monitor.
--- NOTE | 2018-12-02 08:02 | CON ---
[address] [address] CONSULTATION Name: WILLIAM ENCARNACION Room: [address] IN M.R.#: [id number] Admission: 11/30/18 Attend Phys: Anastacia Rosado Discharge: Date of : 49 Report #: [id number] THIS REPORT FOR: //name// CC: Anastacia Bunch REQUESTING PHYSICIAN: Germán Benson MD. REASON FOR CONSULTATION: Respiratory failure, on BiPAP. DISCUSSION: The patient is a 73-year-old man who was admitted after presenting to the Emergency Department yesterday evening. He was having increased shortness of breath, was feeling lightheaded. Did not have any true syncope. A long history of tobacco abuse, currently about 10 cigarettes per day. In the past, smoked of a pack per day. He is not on O2 at home. He does not have a nebulizer. He was evaluated in the ED and was tachypneic and tachycardic, was placed on BiPAP. Subsequently, he was transferred over to the Intensive Care Unit. When I saw him earlier this morning, he was still on the BiPAP. However, he was feeling better. He was able to get some rest. He has had some cough at home, but denies bringing up much sputum. Denies any chest pain. Do note he has been diuresing well since he has received some IV Lasix. PAST MEDICAL HISTORY: Remarkable for atrial flutter, was started on amiodarone last month when he was here. He had a prior carotid endarterectomy, hypertension, dyslipidemia. He has been afebrile overnight. Has been diuresing well. FiO2 was decreased on the BiPAP. After I saw him this morning initially, he was taken off the BiPAP, transitioned over to nasal cannula. Was quite comfortable on that without dyspnea. HOME MEDICATIONS: Have been Flomax, Zanaflex, BuSpar, diltiazem, fentanyl patch, p.r.n. Percocet, Zantac, Trintellix, Combivent inhaler, Flonase nasal spray, amiodarone currently at 200 mg twice a day, baby aspirin, Plavix and pravastatin. SOCIAL HISTORY: Smoker as noted. FAMILY HISTORY: Positive for heart disease. REVIEW OF SYSTEMS: ROS was done. Note positives above. Had been getting weaker, more short of breath. Has had some diarrhea. Appetite falling [place], [place] [address] CONSULTATION Name: WILLIAM ENCARNACION Haily Room: [address] IN [facility]#: [id number] Admission: 11/30/18 Attend Phys: Anastacia Rosado Discharge: Date of : 47 Report #: [id number] denies any actual nausea or vomiting. Has felt lightheaded. However, no true syncope. No recent falls. Was using his Combivent inhaler more at home, but really was not helping. PHYSICAL EXAMINATION: GENERAL APPEARANCE: Chronically ill-appearing man. He is somewhat thin. He is alert and responsive. He is in no acute distress. Initially was on the BiPAP when I saw him. He was seen again later this morning once the BiPAP was off and he was in no acute distress. Thin man. HEENT: Head is normocephalic. Sclerae nonicteric. Mucous membranes were dry from the BiPAP. NECK: Muscles well developed. Neck veins are little prominent. No supraclavicular adenopathy. HEART: Tones distant, but generally regular. He had 2/6 systolic murmur. No S3 was heard. LUNGS: Reveal breath sounds to be diminished. He has a few faint crackles heard. Excursion is equal. Few rhonchi, but no true wheezing. ABDOMEN: Soft without appreciable hepatosplenomegaly. There is no guarding or rebound tenderness. EXTREMITIES: Has no clubbing. Lower extremities are negative for any significant edema. There was no calf tenderness noted. SKIN: Warm and dry. NEUROLOGIC: He is alert and oriented x 3, spontaneously moving all extremities. LABORATORY AND X-RAY FINDINGS: Chest x-ray done revealed prominence of interstitial markings and infiltrates bilaterally. When he was here last month, some of the interstitial changes were noted, but certainly to a much lesser degree in what they are currently. A CT angiogram was done of his chest last night. No pulmonary emboli were seen. Does have small pleural effusions noted. Does have bilateral interstitial infiltrates noted. No consolidative changes were seen. Echocardiogram done a month ago showed preserved systolic function with an EF of 50%-55%. Did have grade 1 diastolic dysfunction. Had LVH. RV was normal. He does have severe aortic stenosis. Peak gradient was 75 mmHg. He had trace mitral regurgitation. Mild pulmonary hypertension. His chemistry, BUN is 9, creatinine 0.8, potassium is 4.3, sodium was initially 125 up to 131 today. ProBNP just over 1700. Thyroid studies are normal. White blood cell count 7800, hemoglobin 10.1, hematocrit 28.8, platelets were normal. Influenza screen was negative. Arterial blood gas done earlier this morning revealed a pH 7.397, pCO2 of 39, pO2 111, bicarbonate 23 with a saturation of 94%. Carboxyhemoglobin was 3.7. IMPRESSION: 1. Acute respiratory failure. Primarily hypoxemia is better this morning. Following excellent diuresis. Some of this could be infectious, so clinically acts more like fluid. 2. Bilateral interstitial infiltrates. Have worsened relative to early last [facility] [address] [place] [address] CONSULTATION Name: WILLIAM ENCARNACION Room: [address] IN M.R.#: [id number] Admission: 11/30/18 Attend Phys: Anastacia condon los Ogilvie Discharge: Date of : 49 Report #: [id number] month. Most likely is fluid. Do note, he was started on amiodarone last month. There is a possibility, some of this could represent amiodarone toxicity but appears to be responding well to the diuretics. 3. History of chronic obstructive pulmonary disease, may have a component of underlying obstructive lung disease. 4. Ongoing tobacco abuse. 5. Severe aortic stenosis. RECOMMENDATIONS: 1. I will leave off BiPAP as tolerated, use FiO2 and wean as able. 2. Return to BiPAP p.r.n. as needed. 3. Input from Cardiology in regards to his valve status. It is not clear when and if he may or may not be a candidate for percutaneous repair. 4. Ongoing tobacco abuse, counseled in regards to quitting. <ELECTRONICALLY SIGNED> By: Mis Wang MD 12/02/18 0802 1302 135Vandana Wang MD /yana
--- NOTE | 2018-12-02 11:47 | NUR ---
WOUND CARE NOTE: CONSULT RECEIVED FOR EXISTING SURGICAL WOUND PATIENT PRESENTS WITH A FULL THICKNESS ULCERATION TO THE LEFT CHEST WALL WHERE A PERMANENT PACE MAKER WAS REMOVED DUE TO NON-HEALING WOUND EDGES. WOUND MEASURES 1.9X1X0.5. RED, MOIST, GRANULAR WOUND BED. KATIE-WOUND INTACT. WOUND APPEARS TO BE HEALING WELL. CLEANSED WITH WOUND CLEANSER, PATTED DRY. PACKED WITH AQUACEL AG AND SECURED WITH A BORDERED FOAM. PATIENT DENIES PAIN TO SITE. EDUCATED ON CONTINUING WITH CURRENT WOUND CARE AT HOME IT APPEARS TO BE HEALING WELL. RECOMMEND CONTINUE WITH CURRENT WOUND CARE ORDERS (AQUACEL AG AND BORDERED FOAM DAILY) ENCOURAGE GOOD NUTRTION/HYDRATION ENCOURAGE SMOKING CESSATION FOLLOW UP IN WOUND CENTER UPON DISCHARGE-SEES DR. FUNG
--- NOTE | 2018-12-02 13:37 | EKG ---
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1945 Requested By: Manoj Vázquez Order Number: [id number] Kelley MD: Sridhar Hills Measurements Intervals [place] Rate: 90 P: 101 MT: 232 QRS: -5 QRSD: 106 T: 115 QT: 320 QTc: 392 Interpretive Statements Sinus rhythm Prolonged MT interval Consider left atrial enlargement LVH with secondary repolarization abnormality Anterior ST elevation, probably due to LVH Compared to ECG 12/01/2018 00:43:30 First degree AV block now present ST (T wave) deviation now present Ectopic atrial tachycardia, unifocal no longer present Myocardial infarct finding no longer present Electronically Signed On 12-02-2018 13:37:17 CDT by Sridhar Hills [email or web address] <ELECTRONICALLY SIGNED> By: Sridhar Hills MD, FACC 12/02/18 1337 Sridhar Hills MD, FACC /EPI
--- NOTE | 2018-12-02 13:40 | CON ---
[address] [address] CONSULTATION Name: WILLIAM ENCARNACION Room: [address] IN M.R.#: [id number] Admission: 11/30/18 Attend Phys: Anastacia Rosado Discharge: Date of : 49 Report #: [id number] THIS REPORT FOR: //name// CC: Anastacia Hensley DO DATE OF SERVICE: 12/01/2018 CARDIOLOGY CONSULTATION HISTORY OF PRESENT ILLNESS: The patient is a 73-year-old white male who I was asked to see in the hospital today after complained of being short of breath. The patient has a long history of hypertension and smoking. He has had previous carotid endarterectomy. He presented to [facility] in October with nausea and was found to be in atrial flutter. His troponin was borderline elevated and Dr. Lewis performed a cardiac catheterization on 10/23. He was found to have a 90% stenosis of a diagonal branch. He then had a single drug-eluting stent placed. He developed atrial flutter and was seen by Dr. Hills. He was placed on amiodarone and diltiazem. He developed episode of bradycardia and Dr. Hills recommended a permanent pacemaker, which was performed in October. However, he was discharged on Plavix and developed a hematoma over the pacemaker pocket. Because of the increasing hematoma, Dr. Hills eventually had to perform evacuation of the hematoma and removal of a permanent pacemaker. The patient was then discharged. He had an echocardiogram that showed an ejection fraction of 55%. There was evidence of severe aortic stenosis, peak gradient [address] Hills pointed out the patient may eventually require TAVR in the future. The patient was discharged, but had to be admitted last night complaining of shortness of breath. Cardiology consultation requested. He denies any significant chest pain, palpitation, syncope. He has had edema. PAST MEDICAL HISTORY: Otherwise significant for back surgery, hand surgery. He has a history of hypertension, hyperlipidemia. No history of diabetes. MEDICATIONS: Consists of amiodarone, aspirin, Plavix, BuSpar, diltiazem, fentanyl patch, Combivent, pravastatin, Flomax. He has been on Chantix. ALLERGIES: HE HAS INTOLERANCE TO BACTRIM AND CODEINE. FAMILY HISTORY: His father of heart disease. SOCIAL HISTORY: He is a retired young. Smokes half pack of cigarettes a day, has a history of alcohol abuse up to a fifth of whiskey a day. [place] [address] CONSULTATION Name: WILLIAM ENCARNACION Room: [address] IN ..#: [id number] Admission: 11/30/18 Attend Phys: Anastacia Rosado Discharge: Date of : 49 Report #: [id number] REVIEW OF SYSTEMS: He has had no history of stroke, asthma, peptic ulcer disease, liver disease, kidney disease, cancer, psychiatric illness, chronic skin condition. He has a history of left iliac artery occlusion. PHYSICAL EXAMINATION: GENERAL: Revealed an elderly male, lying in bed, appeared in no distress. VITAL SIGNS: He had a blood pressure of 120/60, pulse is 80 and irregular. HEENT: Mucous membranes are moist. NECK: Veins appeared mildly distended. CHEST: Revealed distant breath sounds. CARDIOVASCULAR: Irregular rhythm, grade 4 systolic ejection murmur. ABDOMEN: Soft. EXTREMITIES: Had trace edema. SKIN: Cool and dry. LABORATORY DATA: His ECG appears to show an atrial tachycardia with a controlled ventricular response rate. His lab work, BUN 10, creatinine 0.8, hemoglobin 10.5. TSH in October was 1.6. IMPRESSION AND RECOMMENDATIONS: 1. Atrial tachycardia. The patient is on amiodarone. The patient is not very good candidate for anticoagulation. 2. Severe aortic stenosis. 3. Coronary artery disease. Recent stent. Continue aspirin and Plavix. 4. Previous carotid endarterectomy. 5. Peripheral arterial disease with previous occlusion of left iliac artery. 6. Hyperlipidemia. The patient is on a statin drug. 7. Chronic back pain. 8. Tobacco abuse. 9. History of alcohol abuse. The patient no longer abuses alcohol. 10. Previous hematoma of the pacemaker pocket. If he develops symptomatic bradycardia, he would require reinsertion of a pacemaker. <ELECTRONICALLY SIGNED> By: Manoj Vázquez MD, FACC 12/02/18 1340 1343 1437Davijoanna Vázquez MD, FACC /nt
--- NOTE | 2018-12-02 14:21 | NUR ---
PATIENT UPIN CHAIR AND AMBULATING.DENIES SOA. ON ROOM AIR. TAKING PO WELL. USING IS AND FLUTTER VALVE FREQUENTLY. REPORT GIVEN TO MIGUEL GARCÍA.
--- NOTE | 2018-12-02 18:09 | NUR ---
PT ARRIVED TO UNIT VIA WHEELCHAIR, REPORT TAKEN FROM ICU NURSE RAQUEL CONTRERAS. THIS NURSE AGREES WITH FULL ASSESSMENT OF PT MADE BY PRIOR NURSE. PT ORIENTED TO CALL LIGHT AND ROOM, HOURLY ROUNDINGS COMPLETED.
[2018-12-02] MEDS ORDERED: MIRALAX17 G1 PO (20:06)
[2018-12-03] VITALS: BP 131/67
[2018-12-03 04:00] VITALS: BP 137/65
--- NOTE | 2018-12-03 05:11 | NUR ---
ASSUMED CARE OF PT AFTER REPORT AT 1930. PT A&OX4. VSS. PHYSICAL ASSESSMENT COPLETED AND STARTED. PT TRACING ASR/1ST DEG/PACS ON TELE. PT UPADLIB TO RESTROOM. PT PLACED ON NOCTURNAL OXIMETER BY RT. PT O2 SATS ON 80'S. HOOKED PT TO O2 AT 2L NC. PT COMPLAINED OF HEADACHE & SORETHROAT- MEDS GIVEN PER APR. CALL LIGHT WITHIN REACH.
[2018-12-03 05:29] LABS: CALCIUM 8.8 mg/dL (8.5-10.1); CREATININE 0.9 mg/dL (0.6-1.3); MAGNESIUM 1.9 mg/dL (1.8-2.4); POTASSIUM 3.7 mmol/L (3.5-5.1)
[2018-12-03 07:50] VITALS: BP 138/63
[2018-12-03] MEDS ORDERED: FUROSEMIDE 20 M20 MG PO (10:09)
[2018-12-03] MEDS ORDERED: KLOR-CON 10 ER10 MEQ PO (10:09)
--- NOTE | 2018-12-03 10:30 | NUR ---
ASSUMED CARE OF PT AT 0730. PT SITTING AT EDGE OF BED WAITING FOR BREAKFAST. PT A&0X4, COMPLAINS OF PAIN TO HEAD AND BACK. TREATED WITH PRN OXYCODONE WITH RELIEF. TRACING SR WITH FIRST DEGREE ON THE INSURANCE SALES REPRESENTATIVE. ON 2L NC SAT 93%. PT DENIES ANY SHORTNESS OF BREATH AT THIS TIME. PT UP AD BRIAN IN ROOM. PT STATES HE HASNT HAD A BOWEL MOVEMENT IN 3 DAYS-PRN MIRALAX AND COLACE GIVEN. REFER TO EMAR. PT GOAL FOR TODAY IS DISCHARGE PLANNING TO HOME, OBTAIN RT SAT AND EXERCISE, PAIN MGMT AND WOUND CARE TO LEFT CHEST. AM ASSESSMENT CHARTED. MEDICATIONS PER APR, PT REPOSITIONS SELF. HOURLY ROUNDING OBSERVED. BED IN LOW POSITION. CALL LIGHT WITHIN REACH. WILL CONTINUE PLAN OF CARE.
--- NOTE | 2018-12-03 11:31 | NUR ---
CHF MEDICATION DISCHARGE EDUCATION: PATIENT WAS PROVIDED AN EDUCATION HANDOUT. THE MEDICATION FUROSEMIDE WAS DISCUSSED REGARDING HOW TO TAKE, SIDE EFFECTS, AND HOW IT WORKS. ALL QUESTIONS AND CONCERNS WERE ADDRESSED. THANK YOU.
[2018-12-03 12:00] VITALS: BP 150/59
--- NOTE | 2018-12-03 12:25 | NUR ---
Pt discharging to home today. Pt requires home o2, faxed referral to Ebonie at [facility], tank should be delivered within the hour. No further needs.
--- NOTE | 2018-12-03 13:37 | NUR ---
DISCHARGE ORDERS RECEIVED. DISCHARGE INSTRUCTIONS, CARE NOTES AND FOLLOW UP APPTS GIVEN TO PT. PT COMMUNICATES UNDERSTANDING OF DISCHARGE TEACHING. BOTH IV'S AND PRODUCTION WELDING SUPERVISOR REMOVED. PT DISCHARGED WITH ALL BELONGINGS AND PAPERWORK VIA WHEELCHAIR WITH NURSING STAFF TO SPOUSE OWN PERSONAL VEHICLE. DISCHARGE PHOTO TAKEN AND DRESSING CHANGED TO LEFT CHEST. PT DISCHARGED HOME WITH OXYGEN. OXYGEN TANK DELIVERED TO HOSPITAL PRIOR TO DISCHARGE.
== END 2018-12-03 13:38 | disposition home or self-care (01) | DRG 196 ==
LOC: M.ERS 22:09 → M.ICU 23:30 → M.TBA-ER 23:30 → M.ICU 12-01 01:50 → M.2W 12-02 14:51
PROVIDERS: Emergency Medicine; Internal Medicine; ADMIT Family Medicine
PROC: 5A09357 Assistance with Respiratory Ventilation, Less than 24 Consecutive Hours, Continuous Positive Airway Pressure (ICD-10-PCS; principal; 2018-12-01)
DX: J84.9 Interstitial pulmonary disease, unspecified (principal); J96.01 Acute respiratory failure with hypoxia; I50.33 Acute on chronic diastolic (congestive) heart failure; E87.1 Hypo-osmolality and hyponatremia; J44.1 Chronic obstructive pulmonary disease with (acute) exacerbation; I11.0 Hypertensive heart disease with heart failure; K21.9 Gastro-esophageal reflux disease without esophagitis; E78.5 Hyperlipidemia, unspecified; N40.0 Benign prostatic hyperplasia without lower urinary tract symptoms; F32.9 Major depressive disorder, single episode, unspecified; I35.0 Nonrheumatic aortic (valve) stenosis; F17.210 Nicotine dependence, cigarettes, uncomplicated; I25.10 Atherosclerotic heart disease of native coronary artery without angina pectoris; I73.9 Peripheral vascular disease, unspecified; G89.29 Other chronic pain; M54.9 Dorsalgia, unspecified; F10.21 Alcohol dependence, in remission; I27.20 Pulmonary hypertension, unspecified; I48.0 Paroxysmal atrial fibrillation; D64.9 Anemia, unspecified; R63.4 Abnormal weight loss; I49.1 Atrial premature depolarization; K59.00 Constipation, unspecified; Z79.899 Other long term (current) drug therapy; Z86.73 Personal history of transient ischemic attack (TIA), and cerebral infarction without residual deficits; Z79.82 Long term (current) use of aspirin; Z88.6 Allergy status to analgesic agent; Z88.2 Allergy status to sulfonamides; Z88.8 Allergy status to other drugs, medicaments and biological substances; Z79.02 Long term (current) use of antithrombotics/antiplatelets; Z79.01 Long term (current) use of anticoagulants; Z82.49 Family history of ischemic heart disease and other diseases of the circulatory system; Z71.6 Tobacco abuse counseling; Z95.5 Presence of coronary angioplasty implant and graft; Z79.891 Long term (current) use of opiate analgesic; Z95.0 Presence of cardiac pacemaker; Z82.3 Family history of stroke; Z68.20 Body mass index [BMI] 20.0-20.9, adult

== ENCOUNTER → 2019-03-23 | Outpatient (CLI) | payer MEDICARE, MEDICAID ==
[~2019-03-23] MED LIST changes: +FUROSEMIDE 20 M20 MG PO; +KLOR-CON 10 ER10 MEQ PO; +MIRALAX17 G1 PO
== END ==
LOC: M.RAD 14:48
DX: M25.552 Pain in left hip (principal); M47.816 Spondylosis without myelopathy or radiculopathy, lumbar region; M81.0 Age-related osteoporosis without current pathological fracture; W19.XXXA Unspecified fall, initial encounter

== ENCOUNTER 2019-06-16 21:28 | Inpatient (IN) | payer MEDICARE, MEDICAID ==
[~2019-06-16] VITALS: Ht 167.6 cm; Wt 54.9 kg
[2019-06-16 21:41] VITALS: BP 144/60
[2019-06-16 22:09] LABS: CREATININE 1.3 mg/dL (0.6-1.3)
[2019-06-16 22:10] LABS: ABSOLUTE LYMPHOCYTES 0.7 thou/uL (0.8-5.3); ABSOLUTE MONOCYTES 1.2 thou/uL (0.0-1.2); ABSOLUTE NEUTROPHILS 9.7 thou/uL (1.6-8.1); BASOPHILS 0.3 %; EOSINOPHILS 0.2 %; HEMATOCRIT 33.4 % (42.0-52.0); HEMOGLOBIN 11.4 gm/dL (14.0-18.0); LYMPHOCYTES 6.4 %; MCH 30.9 pg (26.0-34.0); MCHC 34.2 g/dL (28.0-37.0); MCV 90.6 fL (80.0-100.0); MONOCYTES 10.2 %; MPV 6.7 fl. (7.2-11.1); NUCLEATED RBCS 0 /100WBC; PLATELET COUNT* 214 thou/uL (150-400); POLYS 82.9 %; RBC 3.69 mil/uL (4.50-6.00); RDW-CV 15.1 % (10.5-14.5); WBC 11.7 thou/uL (4.0-11.0)
[2019-06-16 22:12] LABS: APTT 31.5 Seconds (25.0-31.3); INR 1.1; PROTIME 11.4 Seconds (9.20-11.50)
[2019-06-16 22:20] LABS: ALBUMIN 3.3 g/dL (3.4-5.0); TOTAL BILIRUBIN 0.9 mg/dL (<0.1-1.0); TOTAL PROTEIN 8.1 g/dL (6.4-8.2)
[2019-06-17 00:45] VITALS: BP 154/56
[2019-06-17 01:00] VITALS: BP 141/61
[2019-06-17 08:23] VITALS: BP 161/73
[2019-06-17] MEDS ORDERED: ZAROXOLYN 5MG TA5 MG PO (10:00)
[2019-06-17] MEDS ORDERED: KLOR-CON 1010 MEQ PO (10:00)
[2019-06-17] MEDS ORDERED: ZOFRAN4 MG PO (10:01)
[2019-06-17 12:38] VITALS: BP 154/57
--- NOTE | 2019-06-17 15:19 | NUR ---
SW called pt to complete initial assessment, introduce self, and SW role. Pt lives at home with his . Pt has 3 L supplemental oxygen through [employer]. Pt has cane and said that he doesn't need RW. Pt does not have any known hx with HH or SNF. Pt talkative. SW to continue to follow to assist with safe dc planning.
[2019-06-17 16:55] VITALS: BP 143/68
--- NOTE | 2019-06-17 17:25 | 2DMMODE ---
[place] [address] 2 D/M-MODE ECHOCARDIOGRAM Name: WILLIAM ENCARNACION Room: [address] IN [facility]#: [id number] Admission: 06/16/19 Attend Phys: Genaro Renae, Discharge: Date of : 49 Date of Service: 06/17/19 1723 Report #: [id number] THIS REPORT FOR: cc: Yohannes Jacobsen Russell J. DO Liston, Michael J. MD [facility] ~ APPROVED REPORT Study performed: 06/17/2019 11:11:09 EXAM: Comprehensive 2D, Doppler, and color-flow Echocardiogram Patient Location: In-Patient Room #: [facility] Status: routine BSA: 1.61 HR: 65 bpm BP: 161/73 mmHg Rhythm: NSR Other Information Study Quality: Good Indications Congestive Heart Failure COPD Dyspnea 2D Dimensions IVSd: 12.89 (7-11mm) LVOT Diam: 22.37 (18-24mm) LVDd: 42.77 mm PWd: 12.83 (7-11mm) LVDs: 29.54 (25-40mm) Aortic Root: 27.98 mm Volumes Left Atrial Volume (Systole) LA ESV Index: 43.90 mL/m2 Aortic Valve AoV Peak Orlando.: 3.95 m/s AO Peak Gr.: 62.47 mmHg LVOT Max P.12 mmHg AO Mean Gr.: 37.49 mmHg LVOT Mean P.19 mmHg LVOT Max V: 0.73 m/s AO V2 VTI: 102.03 cm LVOT Mean V: 0.51 m/[place] [address] 2 D/M-MODE ECHOCARDIOGRAM Name: WILLIAM ENCARNACION Room: [address] IN ..#: [id number] Admission: 06/16/19 Attend Phys: Genaro Renae, Discharge: Date of : 49 Date of Service: 06/17/19 1723 Report #: [id number] MALINDA (VTI): 0.81 cm2 LVOT V1 VTI: 20.93 cm AI Crisp: 2.25 m/s2 AI PHT: 460.56 ms Mitral Valve E/A Ratio: 0.54 MV Decel. Time: 20.72 ms MV E Max Orlando.: 0.48 m/s MV PHT: 6.01 ms MVA (PHT): 36.61 cm2 TDI E/Lateral E': 6.86 E/Medial E': 8.00 Medial E' Orlando.: 0.06 m/s Lateral E' Orlando.: 0.07 m/s Pulmonary Valve PV Peak Orlando.: 0.75 m/s PV Peak Gr.: 2.22 mmHg Tricuspid Valve RAP Estimate: 5.00 mmHg TR Peak Gr.: 29.18 mmHg RVSP: 34.00 mmHg PA Pressure: 34.00 mmHg Left Ventricle The left ventricle is normal size. There is normal LV segmental wall motion. Mild concentric left ventricular hypertrophy. Left ventricular systolic function is normal. LVEF is 55-60%. Grade I - abnormal relaxation pattern. Right Ventricle The right ventricle is normal size. The right ventricular systolic function is normal. Atria Left atrium is moderately dilated. The right atrium size is normal. Aortic Valve Severe aortic valve sclerosis. Moderate aortic regurgitation. Severe aortic stenosis. Mitral Valve There is mitral annular calcification. Trace mitral regurgitation. No evidence of [place] [address] 2 D/M-MODE ECHOCARDIOGRAM Name: WILLIAM ENCARNACION Room: [address]#: [id number] Admission: 06/16/19 Attend Phys: Genaro Renae, Discharge: Date of : 49 Date of Service: 06/17/19 1723 Report #: [id number] Tricuspid Valve The tricuspid valve is normal in structure. Mild tricuspid regurgitation. Mild pulmonary hypertension. Pulmonic Valve The pulmonary valve is normal in structure. There is no pulmonic valvular regurgitation. Great Vessels The aortic root is normal in size. IVC is normal in size and collapses >50% with inspiration. Pericardium There is no pericardial effusion. <Conclusion> The left ventricle is normal size. Mild concentric left ventricular hypertrophy. Left ventricular systolic function is normal. LVEF is 55-60%. Left atrium is moderately dilated. Severe aortic valve sclerosis. Moderate aortic regurgitation. Severe aortic stenosis. Trace mitral regurgitation. Mild tricuspid regurgitation. Mild pulmonary hypertension. IVC is normal in size and collapses >50% with inspiration. <ELECTRONICALLY SIGNED> By: Sridhar Hills MD, FACC 06/17/191722 22 22 Sridhar Hills MD, FACC /INF
--- NOTE | 2019-06-17 17:30 | EKG ---
[place] [address] ELECTROCARDIOGRAM REPORT Name: WILLIAM ENCARNACION Room: [address] ADM IN [facility].#: [id number] Admission: 06/16/19 Attend Phys: Genaro Renae, Discharge: Date of : 49 Date of Service: 06/16/192129 Report #: [id number] THIS REPORT FOR: //name// [facility] ED Test Date: 2019-06-16 Test Time: 21:30:54 Pat Name: WILLIAM ENCARNACION Department: Room: [facility] Gender: M Photo Machine Operator: GUERITA : 1945 Requested By: Kush Garzon Order Number: [id number] MD: Sridhar Hills Measurements Intervals [place] Rate: 81 P: [place]: QRS: -29 QRSD: 110 T: 114 QT: 407 QTc: 473 Interpretive Statements Atrial fibrillation LVH with IVCD and secondary repol abnrm Compared to ECG 12/02/2018 09:56:13 Intraventricular conduction delay now present Sinus rhythm no longer present First degree AV block no longer present ST (T wave) deviation no longer present Electronically Signed On 06-17-2019 17:28:55 CDT by Sridhar Hills [email or web address] <ELECTRONICALLY SIGNED> By: Sridhar Hills MD, FACC 06/17/19 1728 29 29 Sridhar Hills MD, [facility] /EPI
--- NOTE | 2019-06-17 17:36 | NUR ---
ASSUMED CARE OF PT AROUND 0730 THIS AM. REFER TO ASSESSMENT. PT TITRATED TO 4L OXYGEN/NC. PT AND STATE PT WEARS 3-4L OXYGEN AT HOME. POTASSIUM REPLACED ON PREVIOUS SHIFT. PT COMPLAINS OF CONSTIPATION THIS AM. PRN ENEMA ADMINISTERED AND PT HAD LARGE WATERY STOOL THIS SHIFT. PT ON 1500 ML FLUID RESTRICTION. PT TO HAVE US OF ABDOMEN TODAY BUT WAS GIVEN HIS LUNCH BY ANOTHER STAFF MEMBER. US POSTPONED UNTIL TOMORROW AM. PT COMPLAINS OF URINARY RETENTION. BLADDER SCAN COMPLETED WITH RESULTS AROUND 180ML. NO OTHER CONCERNS AT THIS TIME. CLWR. WCTM.
[2019-06-17 20:00] VITALS: BP 102/51
[2019-06-18] VITALS: BP 138/58
[2019-06-18 04:00] VITALS: BP 146/57
--- NOTE | 2019-06-18 04:58 | NUR ---
HR HIGH 40s-50s THROUGH THE NIGHT. PT REFUSES AMIODORONE. AFEBRILE, REMAINS ON 4L O2. PT SLEPT THROUGH THE NIGHT. UNHAPPY ABOUT BEING NPO AFTER MIDNIGHT, STATES HE IS GOING TO END UP REFUSING PROCEDURE TODAY ANYWAY. DID REMAIN NPO AFTER MIDNIGHT REGARDLESS. OTHERWISE UNEVENTFUL NIGHT. NO UOP, NO BM THROUGH THE NIGHT. CALL LIGHT WITHIN REACH. WILL CONTINUE MONITORING.
[2019-06-18 06:37] LABS: HEMATOCRIT 34.6 % (42.0-52.0); HEMOGLOBIN 11.8 gm/dL (14.0-18.0); MCH 30.9 pg (26.0-34.0); MCV 90.8 fL (80.0-100.0); MPV 6.8 fl. (7.2-11.1); RBC 3.81 mil/uL (4.50-6.00); RDW-CV 15.1 % (10.5-14.5); WBC 13.3 thou/uL (4.0-11.0)
[2019-06-18 06:48] LABS: ALBUMIN 3.1 g/dL (3.4-5.0); CALCIUM 8.8 mg/dL (8.5-10.1); CREATININE 1.1 mg/dL (0.6-1.3); MAGNESIUM 2.1 mg/dL (1.8-2.4); POTASSIUM 3.4 mmol/L (3.5-5.1); TOTAL BILIRUBIN 0.6 mg/dL (<0.1-1.0); TOTAL PROTEIN 7.7 g/dL (6.4-8.2)
[2019-06-18 10:30] VITALS: BP 82/49
--- NOTE | 2019-06-18 12:00 | NUR ---
PATIENT TRANSFERRED TO RM 116. REPORT GIVEN TO RN. PATIENT IMPULSIVE THIS AM, CONFRONTATIONAL W/ NURSING. SEE MAR. PATIENT CALM AND COOPERATIVE SINCE EPISODE. PATIENT NOTED FORGETFUL AT TIMES. IV SITE NOTED WNL. TELE NOTED. BP MEDS HELD THIS AM, 82/49, P63. RESTING IN BED AT TIME OF ASSESSMENT, EATING INDEP. PATIENT REFUSED TESTING TODAY. WILL ATTEMPT TOMORROW. DR NOTIFIED.~NIGELRN
--- NOTE | 2019-06-18 15:28 | NUR ---
ASSUMED CARE OF THE PT @ 1200. pT TRANSFERED TO ROOM 116 FROM [facility] UNIT. PT IS A/OX4. DENIES PAIN. SIS2 REGULAR. MURMUR NOTED. LUNGS CLEAR IN UPPER LOBES WITH FINE CRACKLES IN THE LOWER LOBS. PT IS ON 3 LITERS 02. PT IS SR/SB ON TELE. PT IS A FALL RISK. PT ABULATES WITH ASSIST X1. VOIDING PER URINAL. ORDER TO BLADDER SCAN AND STRAIGHT CATH FOR URINE GREATER THAN 250CCS. PT IS RESTING QUIETLY AT THIS TIME WITH THE CALL LIGHT IN REACH. WILL CONTINUE TO MONITOR. BED IS LOW AND LOCKED WITH ALARM ON.PT INSTRUCTED TO USE THE CALL LIGHT.
[2019-06-18 16:00] VITALS: BP 153/66
--- NOTE | 2019-06-18 19:02 | NUR ---
SCAN TH EPTS BLADDER 111CC. NO STRAIGHT CATH NEEDED. RESTING QUIETLY. PT VOIDING IN URINAL, BED LOW AND LOCKED .BED ALARM ON. WILL CONTINUE TO MONITOR.
[2019-06-18 20:20] VITALS: BP 155/44
[2019-06-19] VITALS: BP 170/73
[2019-06-19 02:07] LABS: HEPATITIS B SURFACE AG Negative (Negative)
[2019-06-19 04:00] VITALS: BP 138/85
[2019-06-19 04:44] LABS: HEMATOCRIT 34.7 % (42.0-52.0); HEMOGLOBIN 12.1 gm/dL (14.0-18.0); MCH 31.5 pg (26.0-34.0); MCV 90.1 fL (80.0-100.0); MPV 6.9 fl. (7.2-11.1); RBC 3.85 mil/uL (4.50-6.00); RDW-CV 15.3 % (10.5-14.5); WBC 14.4 thou/uL (4.0-11.0)
[2019-06-19 04:56] LABS: CALCIUM 8.6 mg/dL (8.5-10.1); CREATININE 1.2 mg/dL (0.6-1.3); PHOSPHORUS* 3.6 mg/dL (2.5-4.9)
[2019-06-19 05:34] LABS: POTASSIUM 2.6 mmol/L (3.5-5.1)
--- NOTE | 2019-06-19 06:55 | NUR ---
Alert and orinted x 4. He is on O2 at 3L n/c. He is voiding per urinal. Post void residual done x 1 and it was 172 mls. Monitor has bbeen sinus rebekah this shift with PACs but this am he was tachycardic and irregular. 2 EKGs done and it was reported to Dr heath Mullins and his am heart meds were given early. Also this am he had a critical K+ 2.6 and electrolyte protocol is in place. He is feeling much better and is sinus rythym at this time.
[2019-06-19 08:00] VITALS: BP 121/66
[2019-06-19] MEDS ORDERED: METOLAZONE 5 MG5 MG PO (12:23)
[2019-06-19] MEDS ORDERED: LEVAQUIN 750 M750 MG PO (12:23)
[2019-06-19] MEDS ORDERED: PACERONE 200 M200 M1 PO (12:23)
--- NOTE | 2019-06-19 14:28 | EKG ---
[place] [address] ELECTROCARDIOGRAM REPORT Name: WILLIAM ENCARNACION Room: [address] ADM IN [facility].#: [id number] Admission: 06/16/19 Attend Phys: Genaro Renae, Discharge: Date of : 49 Date of Service: 06/19/19 0430 Report #: [id number] THIS REPORT FOR: //name// [facility] ED Test Date: 2019-06-19 Test Time: 04:30:44 Pat Name: WILLIAM ENCARNACION Department: Room: [address] Gender: M Service Attendant: KHOI : 1945 Requested By: Genaro Renae Order Number: [id number] MD: Mason Lewis Measurements Intervals [place] Rate: 65 P: 54 NC: 174 QRS: -9 QRSD: 109 T: 93 QT: 473 QTc: 492 Interpretive Statements Atrial fibrillation LVH with secondary repolarization abnormality Possible anterior infarct, age indeterminate Compared to ECG 06/16/2019 21:30:54 Ventricular premature complex(es) now presen Electronically Signed On 06-19-2019 14:26:51 CDT by Mason Lewis [email or web address] <ELECTRONICALLY SIGNED> By: Mason Lewis MD, [facility] 06/19/19 1426 0430 0430 Mason Lewis MD, [facility] /EPI
--- NOTE | 2019-06-19 15:05 | NUR ---
ASSESSMENT COMPLETED DOCUMENTED THIS MORNING. CARDIAC RHYTHM AFIB/FLUTTER IN THE 80-[address] PATRICK IN TO SEE PATIENT AND DC ORDERS REC'D. PATIENT 02 SAT 96% ON 2LPM/NC AND IS ANXIOUS TO GO HOME. PATIENT RECEIVING KDUR 40 MeQ AT 0800 AND 1000 WITH k+ DRAW AT 1400 PRIOR TO DC. 1500 PATIENT DC'D VIA W/C TO FAMILY CAR ACCOMPANIED BY . ALL PERSONAL BELONGINGS SENT, DC INSTRUCTIONS GIVEN WITH UNDERSTANDING VERBALIZED AND SIGNATURE OBTAINED.
== END 2019-06-19 15:00 | disposition home or self-care (01) | DRG 871 ==
LOC: M.ERS 21:28 → M.TBA-ER 22:37 → M.ORTHSURG 22:37
PROVIDERS: Family Medicine; ADMIT Internal Medicine
DX: A41.9 Sepsis, unspecified organism (principal); J96.21 Acute and chronic respiratory failure with hypoxia; I50.33 Acute on chronic diastolic (congestive) heart failure; J15.9 Unspecified bacterial pneumonia; J44.1 Chronic obstructive pulmonary disease with (acute) exacerbation; D68.59 Other primary thrombophilia; E87.1 Hypo-osmolality and hyponatremia; K21.9 Gastro-esophageal reflux disease without esophagitis; E78.5 Hyperlipidemia, unspecified; F32.9 Major depressive disorder, single episode, unspecified; N40.0 Benign prostatic hyperplasia without lower urinary tract symptoms; J44.9 Chronic obstructive pulmonary disease, unspecified; I48.91 Unspecified atrial fibrillation; G89.29 Other chronic pain; M54.9 Dorsalgia, unspecified; I73.9 Peripheral vascular disease, unspecified; I35.0 Nonrheumatic aortic (valve) stenosis; I11.0 Hypertensive heart disease with heart failure; Z20.828 Contact with and (suspected) exposure to other viral communicable diseases; Z79.891 Long term (current) use of opiate analgesic; Z88.6 Allergy status to analgesic agent; Z88.2 Allergy status to sulfonamides; Z88.8 Allergy status to other drugs, medicaments and biological substances; Z87.891 Personal history of nicotine dependence; Z91.14 Patient's other noncompliance with medication regimen

== ENCOUNTER → 2019-08-03 | Outpatient (CLI) | payer MEDICARE, MEDICAID ==
[~2019-08-03] MED LIST changes: +AUGMENTIN 875-1 EACH PO; +KLOR-CON 1010 MEQ PO; +LEVAQUIN 750 M750 MG PO; +METOLAZONE 5 MG5 MG PO; +ONDANSETRON HCL4 M2 PO; +ZAROXOLYN 5MG TA5 MG PO; +ZOFRAN4 MG PO
[2019-08-03 15:59] LABS: ALBUMIN 3.5 g/dL (3.4-5.0); CALCIUM 8.5 mg/dL (8.5-10.1); CREATININE 1.3 mg/dL (0.6-1.3); TOTAL BILIRUBIN 0.7 mg/dL (<0.1-1.0); TOTAL PROTEIN 7.2 g/dL (6.4-8.2)
== END ==
LOC: M.LAB 15:19
PROVIDERS: ATTEND Nurse Practitioner
DX: R74.8 Abnormal levels of other serum enzymes (principal); Z79.899 Other long term (current) drug therapy

== ENCOUNTER 2019-08-11 12:17 | Emergency (ER) | payer MEDICARE, MEDICAID ==
[~2019-08-11] VITALS: Ht 170.2 cm; Wt 54.4 kg
[~2019-08-11 12:17] MED LIST changes: -AUGMENTIN 875-1 EACH PO; -ONDANSETRON HCL4 M2 PO
[2019-08-11] MEDS ORDERED: ONDANSETRON HCL4 M2 PO (13:31)
[2019-08-11 14:51] VITALS: BP 119/76
== END 2019-08-11 14:51 | disposition home or self-care (01) ==
LOC: M.ERS 12:17
DX: S42.031A Displaced fracture of lateral end of right clavicle, initial encounter for closed fracture (principal); S20.211A Contusion of right front wall of thorax, initial encounter; J84.9 Interstitial pulmonary disease, unspecified; K21.9 Gastro-esophageal reflux disease without esophagitis; E78.5 Hyperlipidemia, unspecified; J44.9 Chronic obstructive pulmonary disease, unspecified; I48.91 Unspecified atrial fibrillation; I11.0 Hypertensive heart disease with heart failure; I50.9 Heart failure, unspecified; F17.210 Nicotine dependence, cigarettes, uncomplicated; Z88.5 Allergy status to narcotic agent; Z88.1 Allergy status to other antibiotic agents; Z88.2 Allergy status to sulfonamides; W01.0XXA Fall on same level from slipping, tripping and stumbling without subsequent striking against object, initial encounter; Y93.89 Activity, other specified; Y92.89 Other specified places as the place of occurrence of the external cause; Y99.8 Other external cause status

== ENCOUNTER 2019-08-16 22:08 | Observation (INO) | payer MEDICARE, MEDICAID ==
[~2019-08-16] VITALS: Ht 167.6 cm; Wt 54.4 kg
[2019-08-16 22:08] VITALS: BP 137/57
[~2019-08-16 22:08] MED LIST changes: +ONDANSETRON HCL4 M2 PO
[2019-08-16 22:52] LABS: ABSOLUTE EOSINOPHILS 0.1 thou/uL (0.0-0.7); ABSOLUTE LYMPHOCYTES 0.8 thou/uL (0.8-5.3); ABSOLUTE MONOCYTES 0.9 thou/uL (0.0-1.2); ABSOLUTE NEUTROPHILS 8.8 thou/uL (1.6-8.1); BASOPHILS 0.4 %; HEMATOCRIT 30.4 % (42.0-52.0); HEMOGLOBIN 10.7 gm/dL (14.0-18.0); LYMPHOCYTES 7.5 %; MCHC 35.2 g/dL (28.0-37.0); MONOCYTES 8.4 %; MPV 6.7 fl. (7.2-11.1); NUCLEATED RBCS 0 /100WBC; PLATELET COUNT* 196 thou/uL (150-400); POLYS 82.7 %; RBC 3.34 mil/uL (4.50-6.00); RDW-CV 15.7 % (10.5-14.5); WBC 10.7 thou/uL (4.0-11.0)
[2019-08-16 22:59] LABS: CALCIUM 8.5 mg/dL (8.5-10.1); CREATININE 1.2 mg/dL (0.6-1.3); POTASSIUM 3.2 mmol/L (3.5-5.1)
[2019-08-16 23:03] LABS: URINE BILIRUBIN NEGATIVE (Negative); URINE BLOOD TRACE (Negative); URINE CLARITY CLEAR; URINE COLOR YELLOW; URINE GLUCOSE-RANDOM NEGATIVE (Negative); URINE KETONES NEGATIVE (Negative); URINE LEUKOCYTES-REFLEX NEGATIVE (Negative); URINE NITRITE-REFLEX NEGATIVE (Negative); URINE PROTEIN NEGATIVE (Negative); URINE UROBILINOGEN 0.2 E.U./dl (0.2-1.0)
[2019-08-16 23:09] LABS: INR 1.1; PROTIME 11.3 Seconds (9.20-11.50)
[2019-08-16 23:10] LABS: ALBUMIN 3.5 g/dL (3.4-5.0); MAGNESIUM 1.9 mg/dL (1.8-2.4); TOTAL BILIRUBIN 1.4 mg/dL (<0.1-1.0); TOTAL PROTEIN 7.4 g/dL (6.4-8.2)
[2019-08-17] MEDS ORDERED: AUGMENTIN 875-1 EACH PO ×2 (04:44→04:46)
[2019-08-17 06:10] VITALS: BP 155/59
--- NOTE | 2019-08-17 10:44 | EKG ---
[place] [address] ELECTROCARDIOGRAM REPORT Name: WILLIAM ENCARNACION Room: [address]#: [id number] Admission: 08/17/19 Attend Phys: Terry Greene Discharge: 08/17/19 Date of : 49 Date of Service: 08/16/19 2218 Report #: [id number] THIS REPORT FOR: //name// [facility] ED Test Date: 2019-08-16 Test Time: 22:18:26 Pat Name: WILLIAM ENCARNACION Department: Room: [facility] Gender: M Refractive Surgeon: MANDY : 1945 Requested By: Nirmala Bucio Order Number: [id number] MD: Manoj Vázquez Measurements Intervals [place] Rate: 82 P: 107 FL: 285 QRS: -34 QRSD: 126 T: 112 QT: 440 QTc: 514 Interpretive Statements Sinus rhythm Prolonged FL interval IVCD, consider atypical RBBB LVH with IVCD and secondary repol abnrm Anterior ST elevation, probably due to LVH Prolonged QT interval Compared to ECG 06/19/2019 04:30:44 Intraventricular conduction delay now present Prolonged QT interval now present Atrial fibrillation no longer present Myocardial infarct finding no longer present Electronically Signed On 08-17-2019 10:44:12 CDT by Manoj Vázquez [email or web address] <ELECTRONICALLY SIGNED> By: Manoj Vázquez MD, [facility] 08/17/19 1044 17 17 Manoj Vázquez MD, [facility] /EPI
== END 2019-08-17 06:13 | disposition left against medical advice (07) ==
LOC: M.ERS 22:08 → M.TBA-ER 08-17 03:59
PROVIDERS: Emergency Medicine; ADMIT Internal Medicine; ATTEND Internal Medicine
DX: J96.20 Acute and chronic respiratory failure, unspecified whether with hypoxia or hypercapnia (principal); K21.9 Gastro-esophageal reflux disease without esophagitis; E78.5 Hyperlipidemia, unspecified; F32.9 Major depressive disorder, single episode, unspecified; J44.9 Chronic obstructive pulmonary disease, unspecified; I11.0 Hypertensive heart disease with heart failure; I50.9 Heart failure, unspecified; I48.91 Unspecified atrial fibrillation; F17.210 Nicotine dependence, cigarettes, uncomplicated

== ENCOUNTER 2020-03-12 18:14 | Emergency (ER) | payer MEDICARE, MEDICAID ==
[~2020-03-12] VITALS: Ht 170.2 cm; Wt 62.6 kg
[~2020-03-12 18:14] MED LIST changes: +AUGMENTIN 875-1 EACH PO
[2020-03-12 18:36] LABS: ABSOLUTE BASOPHILS 0.1 thou/uL (0.0-0.2); ABSOLUTE EOSINOPHILS 0.5 thou/uL (0.0-0.7); ABSOLUTE LYMPHOCYTES 2.1 thou/uL (0.8-5.3); ABSOLUTE MONOCYTES 0.8 thou/uL (0.0-1.2); ABSOLUTE NEUTROPHILS 4.5 thou/uL (1.6-8.1); BASOPHILS 1.2 %; EOSINOPHILS 6.4 %; HEMATOCRIT 36.6 % (42.0-52.0); HEMOGLOBIN 12.5 gm/dL (14.0-18.0); LYMPHOCYTES 25.8 %; MCH 30.6 pg (26.0-34.0); MCHC 34.2 g/dL (28.0-37.0); MCV 89.4 fL (80.0-100.0); MPV 6.5 fl. (7.2-11.1); NUCLEATED RBCS 0 /100WBC; PLATELET COUNT* 174 thou/uL (150-400); POLYS 56.6 %; RDW-CV 14.9 % (10.5-14.5)
[2020-03-12 18:55] LABS: CREATININE 1.2 mg/dL (0.6-1.3)
[2020-03-12 18:57] LABS: POTASSIUM 2.7 mmol/L (3.5-5.1)
[2020-03-12 18:58] LABS: APTT 30.9 Seconds (25.0-31.3); PROTIME 10.9 Seconds (9.20-11.50)
[2020-03-12 19:02] LABS: ALBUMIN 3.8 g/dL (3.4-5.0); CK-MB MASS 0.7 ng/mL (<0.5-3.6); MAGNESIUM 1.8 mg/dL (1.8-2.4); TOTAL BILIRUBIN 0.4 mg/dL (<0.1-1.0); TOTAL PROTEIN 7.8 g/dL (6.4-8.2)
[2020-03-12 21:51] VITALS: BP 140/61
--- NOTE | 2020-03-13 13:54 | EKG ---
[place] [address] ELECTROCARDIOGRAM REPORT Name: WILLIAM ENCARNACION Room: [facility]#: [id number] Admission: 03/12/20 Attend Phys: Discharge: 03/12/20 Date of : 49 Date of Service: 03/12/201825 Report #: [id number] THIS REPORT FOR: //name// [facility] ED Test Date: 2020-03-12 Test Time: 18:26:57 Pat Name: WILLIAM ENCARNACION Department: Room: Gender: [place] Machine Loader: JANNETTE : 1945 Requested By: Kush Garzon Order Number: [id number] MD: Manoj Vázquez Measurements Intervals [place] Rate: 75 P: MS: QRS: -18 QRSD: 108 T: QT: 496 QTc: 555 Interpretive Statements Atrial fibrillation LVH with secondary repolarization abnormality Borderline prolonged QT interval Baseline wander in lead(s) II,III,aVL,aVF,V1,V5 Compared to ECG 08/16/2019 22:18:26 Sinus rhythm no longer present Electronically Signed On 03-13-2020 13:54:33 CLINICAL RESEARCH MANAGER by Manoj Vázquez [email or web address] <ELECTRONICALLY SIGNED> By: Manoj Vázquez MD, FACC 03/13/20 1354 1826 1826 Manoj Vázquez MD, FAC /EPI
== END 2020-03-12 21:40 | disposition home or self-care (01) ==
LOC: M.ERS 18:14
PROVIDERS: Family Medicine
DX: R07.89 Other chest pain (principal); I11.0 Hypertensive heart disease with heart failure; I50.9 Heart failure, unspecified; I48.91 Unspecified atrial fibrillation; E78.5 Hyperlipidemia, unspecified; E87.6 Hypokalemia; R79.89 Other specified abnormal findings of blood chemistry; F17.210 Nicotine dependence, cigarettes, uncomplicated; K21.9 Gastro-esophageal reflux disease without esophagitis; J44.9 Chronic obstructive pulmonary disease, unspecified; Z88.5 Allergy status to narcotic agent; Z88.1 Allergy status to other antibiotic agents; Z88.8 Allergy status to other drugs, medicaments and biological substances; Z79.82 Long term (current) use of aspirin; Z79.899 Other long term (current) drug therapy

== ENCOUNTER 2020-04-14 15:59 | Inpatient (IN) | payer MEDICARE, MEDICAID ==
[~2020-04-14] VITALS: Ht 162.6 cm; Wt 57.2 kg
[2020-04-14 16:31] LABS: ABSOLUTE BASOPHILS 0.1 thou/uL (0.0-0.2); ABSOLUTE EOSINOPHILS 0.5 thou/uL (0.0-0.7); ABSOLUTE LYMPHOCYTES 1.6 thou/uL (0.8-5.3); ABSOLUTE MONOCYTES 0.8 thou/uL (0.0-1.2); ABSOLUTE NEUTROPHILS 5.6 thou/uL (1.6-8.1); BASOPHILS 1.2 %; EOSINOPHILS 6.1 %; HEMATOCRIT 36.7 % (42.0-52.0); HEMOGLOBIN 12.5 gm/dL (14.0-18.0); LYMPHOCYTES 18.3 %; MCH 30.7 pg (26.0-34.0); MCHC 34.1 g/dL (28.0-37.0); MCV 90.1 fL (80.0-100.0); MPV 6.5 fl. (7.2-11.1); NUCLEATED RBCS 0 /100WBC; PLATELET COUNT* 188 thou/uL (150-400); POLYS 65.4 %; RBC 4.08 mil/uL (4.50-6.00); RDW-CV 14.8 % (10.5-14.5); WBC 8.6 thou/uL (4.0-11.0)
[2020-04-14 16:41] LABS: APTT 29.5 Seconds (25.0-31.3); PROTIME 10.3 Seconds (9.20-11.50)
[2020-04-14 16:45] LABS: CALCIUM 9.5 mg/dL (8.5-10.1)
[2020-04-14 16:48] LABS: POTASSIUM 2.7 mmol/L (3.5-5.1)
[2020-04-14 16:54] LABS: ALBUMIN 4.1 g/dL (3.4-5.0); TOTAL BILIRUBIN 0.6 mg/dL (<0.1-1.0); TOTAL PROTEIN 8.3 g/dL (6.4-8.2)
[2020-04-14 18:43] VITALS: BP 117/78
[2020-04-14 19:30] VITALS: BP 122/66
[2020-04-14 21:55] LABS: CALCIUM 9.4 mg/dL (8.5-10.1); CREATININE 0.9 mg/dL (0.6-1.3)
[2020-04-14 21:56] LABS: POTASSIUM 2.8 mmol/L (3.5-5.1)
[2020-04-14 21:58] LABS: MAGNESIUM 1.8 mg/dL (1.8-2.4); PHOSPHORUS* 4.1 mg/dL (2.5-4.9)
[2020-04-14] MEDS ORDERED: FENTANYL PATCH75 MCG TRANSDERM (23:32)
[2020-04-14] MEDS ORDERED: METOLAZONE 2.52.5 M1 PO (23:39)
[2020-04-15] VITALS (7 sets, daily range): BP systolic 117–149; BP diastolic 60–81
--- NOTE | 2020-04-15 09:27 | EKG ---
[place] [address] ELECTROCARDIOGRAM REPORT Name: WILLIAM ENCARNACION Room: [address] ADM IN [facility]#: [id number] Admission: 04/14/20 Attend Phys: Terry Greene Discharge: Date of : 49 Date of Service: 04/14/20 1604 Report #: [id number] THIS REPORT FOR: //name// [facility] ED Test Date: 2020-04-14 Test Time: 16:04:28 Pat Name: WILLIAM ENCARNACION Department: Room: [facility] Gender: M Manager Supplier: Cesar Allen : 1945 Requested By: Levy Estevez Order Number: [id number] MD: Mason Lewis Measurements Intervals [place] Rate: 78 P: [place]: QRS: -18 QRSD: 102 T: 127 QT: 365 QTc: 416 Interpretive Statements Atrial fibrillation LVH with secondary repolarization abnormality Anterior Q waves, possibly due to LVH Compared to ECG 03/12/2020 18:26:57 No significant interval change Electronically Signed On 04-15-2020 9:27:12 HR ASSOCIATE by Mason Lewis [email or web address] <ELECTRONICALLY SIGNED> By: Mason Lewis MD, [facility] 04/15/20 0927 1604 1604 Mason Lewis MD, [facility] /EPI
[2020-04-15 10:01] LABS: HEMOGLOBIN 12.5 gm/dL (14.0-18.0); MCH 30.6 pg (26.0-34.0); MCHC 33.8 g/dL (28.0-37.0); MCV 90.7 fL (80.0-100.0); MPV 6.7 fl. (7.2-11.1); NUCLEATED RBCS 0 /100WBC; PLATELET COUNT* 192 thou/uL (150-400); RBC 4.08 mil/uL (4.50-6.00); RDW-CV 14.7 % (10.5-14.5); WBC 9.1 thou/uL (4.0-11.0)
[2020-04-15 10:17] LABS: ALBUMIN 3.8 g/dL (3.4-5.0); CALCIUM 9.6 mg/dL (8.5-10.1); CREATININE 1.1 mg/dL (0.6-1.3); MAGNESIUM 1.7 mg/dL (1.8-2.4); PHOSPHORUS* 2.9 mg/dL (2.5-4.9); POTASSIUM 3.6 mmol/L (3.5-5.1); TOTAL BILIRUBIN 0.6 mg/dL (<0.1-1.0); TOTAL PROTEIN 7.8 g/dL (6.4-8.2)
[2020-04-15 10:30] LABS: ABSOLUTE EOSINOPHILS 0.1 thou/uL (0.0-0.7); ABSOLUTE LYMPHOCYTES 0.7 thou/uL (0.8-5.3); ABSOLUTE MONOCYTES 0.2 thou/uL (0.0-1.2); ABSOLUTE NEUTROPHILS 8.1 thou/uL (1.6-8.1); LARGE PLATELETS OCCASIONAL; PLATELET ESTIMATE ADEQUATE
--- NOTE | 2020-04-15 16:18 | 2DMMODE ---
[place] [address] 2 D/M-MODE ECHOCARDIOGRAM Name: WILLIAM ENCARNACION Room: [address] IN [facility]#: [id number] Admission: 04/14/20 Attend Phys: Terry Greene Discharge: Date of : 49 Date of Service: 04/15/20 1618 Report #: [id number] THIS REPORT FOR: cc: Yohannes Jacobsen Russell J. DO Holkins,Mason Robin MD [facility] ~ APPROVED REPORT Study performed: 04/15/2020 14:26:57 EXAM: Comprehensive 2D, Doppler, and color-flow Echocardiogram Patient Location: In-Patient Room #: [facility] Status: routine BSA: 1.61 HR: 72 bpm BP: 149/66 mmHg Rhythm: NSR Other Information Study Quality: Good Indications Atrial Fibrillation 2D Dimensions IVSd: 13.44 (7-11mm) LVOT Diam: 20.16 (18-24mm) LVDd: 45.29 mm PWd: 12.64 (7-11mm) LVDs: 36.28 (25-40mm) Aortic Root: 32.32 mm Volumes Left Atrial Volume (Systole) LA ESV Index: 59.30 mL/m2 Aortic Valve AoV Peak Orlando.: 4.37 m/s AO Peak Gr.: 76.49 mmHg LVOT Max P.94 mmHg AO Mean Gr.: 44.16 mmHg LVOT Mean P.12 mmHg LVOT Max V: 0.70 m/s AO V2 VTI: 88.33 cm LVOT Mean V: 0.50 m/s MALINDA (VTI): 0.57 cm2 LVOT V1 VTI: 15.87 cm AI Jack: 2.89 m/s2 [place] [address] 2 D/M-MODE ECHOCARDIOGRAM Name: WILLIAM ENCARNACION Room: [address] IN [facility]#: [id number] Admission: 04/14/20 Attend Phys: Terry Greene Discharge: Date of : 49 Date of Service: 04/15/20 1618 Report #: [id number] AI PHT: 368.31 ms TDI Medial E' Orlando.: 0.07 m/s Lateral E' Orlando.: 0.11 m/s Tricuspid Valve RAP Estimate: 5.00 mmHg TR Peak Gr.: 28.40 mmHg RVSP: 33.00 mmHg PA Pressure: 33.00 mmHg Left Ventricle The left ventricle is normal size. There is normal LV segmental wall motion. Mild concentric left ventricular hypertrophy. Left ventricular systolic function is normal. The left ventricular ejection fraction is within the normal range. LVEF is 55-60%. This study is not technically sufficient to allow evaluation of the LV diastolic function due to atrial fibrillation. Right Ventricle The right ventricle is normal size. The right ventricular systolic function is normal. Pacemaker lead is present in the right ventricle. Atria Left atrium is moderately dilated. The right atrium size is normal. Aortic Valve Severe aortic valve sclerosis. Mild to moderate aortic regurgitation. Severe aortic stenosis. Mitral Valve There is mitral annular calcification. Mild mitral regurgitation. No evidence of mitral valve stenosis. Tricuspid Valve The tricuspid valve is normal in structure. Trace tricuspid regurgitation. Mild pulmonary hypertension. Pulmonic Valve Pulmonic valve is not well visualized. Great Vessels The aortic root is normal in size. IVC is normal in size and collapses >50% [place] [address] 2 D/M-MODE ECHOCARDIOGRAM Name: WILLIAM ENCARNACION Room: [address] IN [facility].#: [id number] Admission: 04/14/20 Attend Phys: Terry Greene Discharge: Date of : 49 Date of Service: 04/15/20 1618 Report #: [id number] Pericardium There is no pericardial effusion. <Conclusion> The left ventricle is normal size. Mild concentric left ventricular hypertrophy. Left ventricular systolic function is normal. The left ventricular ejection fraction is within the normal range. LVEF is 55-60%. This study is not technically sufficient to allow evaluation of the LV diastolic function due to atrial fibrillation. The right ventricle is normal size. Left atrium is moderately dilated. The right atrium size is normal. Severe aortic valve sclerosis. Mild to moderate aortic regurgitation. Severe aortic stenosis. There is mitral annular calcification. Mild mitral regurgitation. The tricuspid valve is normal in structure. IVC is normal in size and collapses >50% with inspiration. There is no pericardial effusion. There is normal LV segmental wall motion. <ELECTRONICALLY SIGNED> By: Mason Lewis MD, FACC 04/15/20 1618 1618 1618 Mason Lewis MD, FACC /INF
[2020-04-16 03:41] VITALS: BP 133/75
[2020-04-16 06:42] LABS: HEMOGLOBIN 11.9 gm/dL (14.0-18.0); MCH 30.5 pg (26.0-34.0); MCV 89.6 fL (80.0-100.0); MPV 6.2 fl. (7.2-11.1); RBC 3.91 mil/uL (4.50-6.00); WBC 9.6 thou/uL (4.0-11.0)
[2020-04-16 06:54] LABS: CALCIUM 9.5 mg/dL (8.5-10.1); CREATININE 0.9 mg/dL (0.6-1.3); POTASSIUM 3.1 mmol/L (3.5-5.1)
[2020-04-16 08:05] VITALS: BP 115/67
[2020-04-16 12:13] VITALS: BP 143/87
[2020-04-16 15:13] VITALS: BP 143/87
[2020-04-16] MEDS ORDERED: PACERONE 200 M200 M1 PO (15:33)
[2020-04-16] MEDS ORDERED: DILTIAZEM 24HR180 M1 PO (15:33)
[2020-04-16 18:05] VITALS: BP 143/87
== END 2020-04-16 17:05 | disposition home or self-care (01) | DRG 643 ==
LOC: M.ERS 15:59 → M.2W 17:09 → M.TBA-ER 17:09 → M.2W 19:04
PROVIDERS: Emergency Medicine Emergency Medical Services; ADMIT Internal Medicine; ATTEND Internal Medicine
PROC: 5A0935A Assistance with Respiratory Ventilation, Less than 24 Consecutive Hours, High Flow/Velocity Cannula (ICD-10-PCS; principal; 2020-04-15)
DX: E22.2 Syndrome of inappropriate secretion of antidiuretic hormone (principal); I50.33 Acute on chronic diastolic (congestive) heart failure; I48.20 Chronic atrial fibrillation, unspecified; I48.92 Unspecified atrial flutter; I11.0 Hypertensive heart disease with heart failure; K21.9 Gastro-esophageal reflux disease without esophagitis; E78.5 Hyperlipidemia, unspecified; F32.9 Major depressive disorder, single episode, unspecified; G89.29 Other chronic pain; M54.9 Dorsalgia, unspecified; F17.210 Nicotine dependence, cigarettes, uncomplicated; E87.6 Hypokalemia; I25.10 Atherosclerotic heart disease of native coronary artery without angina pectoris; I35.0 Nonrheumatic aortic (valve) stenosis; N40.1 Benign prostatic hyperplasia with lower urinary tract symptoms; R33.8 Other retention of urine; E87.8 Other disorders of electrolyte and fluid balance, not elsewhere classified; J44.9 Chronic obstructive pulmonary disease, unspecified; Z20.822 Contact with and (suspected) exposure to COVID-19; Z79.82 Long term (current) use of aspirin; Z79.899 Other long term (current) drug therapy; Z88.8 Allergy status to other drugs, medicaments and biological substances; Z88.2 Allergy status to sulfonamides; Z88.5 Allergy status to narcotic agent; Z95.0 Presence of cardiac pacemaker

== ENCOUNTER 2020-04-22 20:47 | Inpatient (IN) | payer MEDICARE, MEDICAID ==
[~2020-04-22] VITALS: Ht 170.2 cm; Wt 57.2 kg
[~2020-04-22 20:47] MED LIST changes: +DILTIAZEM 24HR180 M1 PO; +FENTANYL PATCH75 MCG TRANSDERM; +METOLAZONE 2.52.5 M1 PO
[2020-04-22 21:29] LABS: ABSOLUTE BASOPHILS 0.1 thou/uL (0.0-0.2); ABSOLUTE EOSINOPHILS 0.1 thou/uL (0.0-0.7); ABSOLUTE LYMPHOCYTES 0.6 thou/uL (0.8-5.3); ABSOLUTE MONOCYTES 0.8 thou/uL (0.0-1.2); ABSOLUTE NEUTROPHILS 8.4 thou/uL (1.6-8.1); BASOPHILS 0.7 %; EOSINOPHILS 0.6 %; HEMATOCRIT 28.8 % (42.0-52.0); LYMPHOCYTES 6.2 %; MCH 31.5 pg (26.0-34.0); MCHC 34.8 g/dL (28.0-37.0); MCV 90.7 fL (80.0-100.0); MONOCYTES 8.4 %; MPV 6.6 fl. (7.2-11.1); NUCLEATED RBCS 0 /100WBC; PLATELET COUNT* 182 thou/uL (150-400); POLYS 84.1 %; RBC 3.17 mil/uL (4.50-6.00); RDW-CV 15.3 % (10.5-14.5); WBC 9.9 thou/uL (4.0-11.0)
[2020-04-22 21:38] LABS: CALCIUM 9.6 mg/dL (8.5-10.1); CREATININE 1.5 mg/dL (0.6-1.3); POTASSIUM 4.8 mmol/L (3.5-5.1)
[2020-04-22 21:42] LABS: ALBUMIN 3.5 g/dL (3.4-5.0); MAGNESIUM 1.9 mg/dL (1.8-2.4); TOTAL BILIRUBIN 0.5 mg/dL (<0.1-1.0); TOTAL PROTEIN 6.9 g/dL (6.4-8.2)
[2020-04-22 23:24] LABS: URINE BILIRUBIN NEGATIVE (Negative); URINE BLOOD TRACE (Negative); URINE CLARITY CLEAR; URINE COLOR YELLOW; URINE GLUCOSE-RANDOM NEGATIVE (Negative); URINE KETONES NEGATIVE (Negative); URINE LEUKOCYTES-REFLEX NEGATIVE (Negative); URINE NITRITE-REFLEX NEGATIVE (Negative); URINE PROTEIN NEGATIVE (Negative); URINE UROBILINOGEN 0.2 E.U./dl (0.2-1.0)
[2020-04-23 00:49] VITALS: BP 129/48
[2020-04-23 00:57] VITALS: BP 129/48
[2020-04-23] MEDS ORDERED: PACERONE200 MG PO (02:18)
[2020-04-23 04:00] VITALS: BP 128/68
[2020-04-23 08:00] VITALS: BP 126/49
[2020-04-23 10:36] LABS: CALCIUM 8.9 mg/dL (8.5-10.1); POTASSIUM 3.8 mmol/L (3.5-5.1)
[2020-04-23 10:39] LABS: MAGNESIUM 2.1 mg/dL (1.8-2.4); PHOSPHORUS* 3.7 mg/dL (2.5-4.9)
[2020-04-23 11:09] LABS: % SATURATION 13 % (20-39); IRON 31 ug/dL (50-175)
--- NOTE | 2020-04-23 14:01 | EKG ---
[place] [address] ELECTROCARDIOGRAM REPORT Name: WILLIAM ENCARNACION Room: [address] ADM [place] ..#: [id number] Admission: 04/22/20 Attend Phys: Sapna Arndt, Discharge: Date of : 49 Date of Service: 04/22/202050 Report #: [id number] THIS REPORT FOR: //name// [facility] ED Test Date: 2020-04-22 Test Time: 20:51:16 Pat Name: WILLIAM ENCARNACION Department: Room: [facility] Gender: M It Service Technician: SD : 1945 Requested By: Farzaneh Dickerson Order Number: [id number] MD: Omar Burnham Measurements Intervals [place] Rate: 83 P: TN: QRS: -11 QRSD: 113 T: 115 QT: 398 QTc: 468 Interpretive Statements Atrial fibrillation RSR' in V1 or V2, probably normal variant LVH with IVCD and secondary repol abnrm Compared to ECG 04/14/2020 16:04:28 RSR' in V1 or V2 now present Intraventricular conduction delay now present Q waves no longer present Electronically Signed On 04-23-2020 14:00:59 FINAL CIGAR AND BOX EXAMINER by Omar Burnham [email or web address] <ELECTRONICALLY SIGNED> By: Cee Burnham MD, [facility] 04/23/201399 50 50 Cee Burnham MD, [facility] /EPI
[2020-04-23 16:25] LABS: CALCIUM 8.6 mg/dL (8.5-10.1); CREATININE 1.3 mg/dL (0.6-1.3)
[2020-04-23 23:33] VITALS: BP 120/64
[2020-04-24 03:53] VITALS: BP 140/68
[2020-04-24 04:23] LABS: HEMATOCRIT 28.6 % (42.0-52.0); HEMOGLOBIN 9.7 gm/dL (14.0-18.0); MCH 30.8 pg (26.0-34.0); MCV 90.4 fL (80.0-100.0); MPV 6.6 fl. (7.2-11.1); RBC 3.17 mil/uL (4.50-6.00); RDW-CV 15.6 % (10.5-14.5); WBC 4.5 thou/uL (4.0-11.0)
[2020-04-24 04:37] LABS: CALCIUM 8.8 mg/dL (8.5-10.1); MAGNESIUM 2.1 mg/dL (1.8-2.4); POTASSIUM 3.3 mmol/L (3.5-5.1)
[2020-04-24 08:00] VITALS: BP 135/69
[2020-04-24 10:59] VITALS: BP 111/45
[2020-04-24 16:01] VITALS: BP 111/45
[2020-04-24 20:00] VITALS: BP 121/62
[2020-04-25 00:04] VITALS: BP 130/68
[2020-04-25 04:29] VITALS: BP 128/58
[2020-04-25 04:42] LABS: CALCIUM 9.5 mg/dL (8.5-10.1); CREATININE 1.1 mg/dL (0.6-1.3); MAGNESIUM 2.2 mg/dL (1.8-2.4); POTASSIUM 3.6 mmol/L (3.5-5.1)
[2020-04-25 08:00] VITALS: BP 121/62
[2020-04-25] MEDS ORDERED: CEFDINIR300 MG PO (08:29)
[2020-04-25] MEDS ORDERED: PREDNISONE 10 M10 MG PO (08:29)
[2020-04-25] MEDS ORDERED: AZITHROMYCIN 2250 MG PO (08:29)
[2020-04-25] MEDS ORDERED: NAMENDA 5 MG TAB5 M1 PO (08:29)
[2020-04-25] MEDS ORDERED: ARICEPT 5 MG TAB5 MG PO (08:29)
[2020-04-25] MEDS ORDERED: LASIX 20 MG TAB20 MG PO (08:30)
[2020-04-25 11:55] VITALS: BP 121/62
[2020-04-25 11:57] VITALS: BP 121/62
[2020-04-25 12:00] VITALS: BP 126/58
== END 2020-04-25 13:30 | disposition home health service (06) | DRG 177 ==
LOC: M.ERS 20:47 → M.2W 23:06 → M.TBA-ER 23:06 → M.2W 04-23 00:42
PROVIDERS: Internal Medicine; Personal Emergency Response Attendant; ADMIT Internal Medicine; ATTEND Internal Medicine
PROC: 5A0935A Assistance with Respiratory Ventilation, Less than 24 Consecutive Hours, High Flow/Velocity Cannula (ICD-10-PCS; principal; 2020-04-23)
PROC: 5A0935A Assistance with Respiratory Ventilation, Less than 24 Consecutive Hours, High Flow/Velocity Cannula (ICD-10-PCS; 2020-04-24)
DX: J15.6 Pneumonia due to other Gram-negative bacteria (principal); J96.01 Acute respiratory failure with hypoxia; N17.0 Acute kidney failure with tubular necrosis; I50.33 Acute on chronic diastolic (congestive) heart failure; E87.1 Hypo-osmolality and hyponatremia; D63.8 Anemia in other chronic diseases classified elsewhere; K59.00 Constipation, unspecified; G89.29 Other chronic pain; I49.5 Sick sinus syndrome; I35.0 Nonrheumatic aortic (valve) stenosis; K80.20 Calculus of gallbladder without cholecystitis without obstruction; K21.9 Gastro-esophageal reflux disease without esophagitis; I48.91 Unspecified atrial fibrillation; I73.9 Peripheral vascular disease, unspecified; F31.9 Bipolar disorder, unspecified; N40.1 Benign prostatic hyperplasia with lower urinary tract symptoms; J44.9 Chronic obstructive pulmonary disease, unspecified; R33.8 Other retention of urine; F03.90 Unspecified dementia, unspecified severity, without behavioral disturbance, psychotic disturbance, mood disturbance, and anxiety; I11.0 Hypertensive heart disease with heart failure; E78.5 Hyperlipidemia, unspecified; Z20.822 Contact with and (suspected) exposure to COVID-19; Z79.82 Long term (current) use of aspirin; Z79.899 Other long term (current) drug therapy; Z88.5 Allergy status to narcotic agent; Z88.2 Allergy status to sulfonamides; Z88.8 Allergy status to other drugs, medicaments and biological substances; Z87.891 Personal history of nicotine dependence; Z23 Encounter for immunization

== ENCOUNTER 2020-08-11 09:14 | Inpatient (IN) | payer MEDICARE, MEDICAID ==
[~2020-08-11] VITALS: Ht 167.6 cm; Wt 56.6 kg
[~2020-08-11 09:14] MED LIST changes: +ARICEPT 5 MG TAB5 MG PO; +AZITHROMYCIN 2250 MG PO; +CEFDINIR300 MG PO; +LASIX 20 MG TAB20 MG PO; +NAMENDA 5 MG TAB5 M1 PO; +PACERONE200 MG PO; +PREDNISONE 10 M10 MG PO
[2020-08-11 09:17] VITALS: BP 123/56
[2020-08-11 09:52] LABS: ABSOLUTE BASOPHILS 0.1 thou/uL (0.0-0.2); ABSOLUTE EOSINOPHILS 0.1 thou/uL (0.0-0.7); ABSOLUTE MONOCYTES 0.8 thou/uL (0.0-1.2); ABSOLUTE NEUTROPHILS 8.4 thou/uL (1.6-8.1); BASOPHILS 0.6 %; EOSINOPHILS 1.3 %; HEMATOCRIT 30.2 % (42.0-52.0); HEMOGLOBIN 10.6 gm/dL (14.0-18.0); LYMPHOCYTES 9.9 %; MCH 31.5 pg (26.0-34.0); MCHC 35.1 g/dL (28.0-37.0); MCV 89.9 fL (80.0-100.0); MONOCYTES 7.4 %; MPV 6.8 fl. (7.2-11.1); NUCLEATED RBCS 0 /100WBC; PLATELET COUNT* 174 thou/uL (150-400); POLYS 80.8 %; RBC 3.36 mil/uL (4.50-6.00); RDW-CV 14.8 % (10.5-14.5); WBC 10.4 thou/uL (4.0-11.0)
[2020-08-11 10:07] LABS: BE 4.8 mmol/L (-2 to +3); PCO2 44.6 mmHg (35.0-45.0); PO2 79.1 mmHg (75.0-100.0); pH 7.439 (7.340-7.450)
[2020-08-11 10:18] LABS: ALBUMIN 3.8 g/dL (3.4-5.0); CALCIUM 8.3 mg/dL (8.5-10.1); CREATININE 1.1 mg/dL (0.6-1.3); MAGNESIUM 1.7 mg/dL (1.8-2.4); TOTAL BILIRUBIN 0.6 mg/dL (<0.1-1.0); TOTAL PROTEIN 7.2 g/dL (6.4-8.2)
[2020-08-11 10:31] LABS: POTASSIUM 2.6 mmol/L (3.5-5.1)
[2020-08-11 13:11] VITALS: BP 145/70
[2020-08-11 13:40] VITALS: BP 137/66
[2020-08-11 16:00] VITALS: BP 146/67
--- NOTE | 2020-08-11 16:46 | EKG ---
[place] [address] ELECTROCARDIOGRAM REPORT Name: ENCARNACIONWILLIAM FABBY Room: [address] ADM IN [facility].#: [id number] Admission: 08/11/20 Attend Phys: Sapna Arndt, Discharge: Date of : 49 Date of Service: 08/11/20920 Report #: [id number] THIS REPORT FOR: //name// [facility] ED Test Date: 2020-08-11 Test Time: 09:21:26 Pat Name: WILLIAM ENCARNACION Department: Room: [facility] Gender: M Rn Social Services: MARIS : 1945 Requested By: Levy Estevez Order Number: [id number] MD: Sridhar Hills Measurements Intervals [place] Rate: 97 P: 105 ND: 155 QRS: -47 QRSD: 140 T: 116 QT: 410 QTc: 521 Interpretive Statements Sinus rhythm Left bundle branch block Baseline wander in lead(s) V4 Compared to ECG 04/22/2020 20:51:16 Left bundle-branch block now present Atrial fibrillation no longer present Intraventricular conduction delay no longer present Left ventricular hypertrophy no longer present Early repolarization no longer present Electronically Signed On 08-11-2020 16:46:24 CDT by Sridhar Hills [email or web address] <ELECTRONICALLY SIGNED> By: Sridhar Hills MD, [facility] 08/11/20 1646 0 0 Sridhar Hills MD, [facility] /EPI
[2020-08-11 20:00] VITALS: BP 152/68
[2020-08-12] VITALS: BP 156/57
[2020-08-12 04:00] VITALS: BP 153/55
[2020-08-12 05:10] LABS: HEMATOCRIT 30.1 % (42.0-52.0); HEMOGLOBIN 10.6 gm/dL (14.0-18.0); MCH 31.6 pg (26.0-34.0); MCHC 35.1 g/dL (28.0-37.0); MCV 89.9 fL (80.0-100.0); RBC 3.34 mil/uL (4.50-6.00); RDW-CV 14.5 % (10.5-14.5); WBC 11.7 thou/uL (4.0-11.0)
[2020-08-12 05:29] LABS: ALBUMIN 3.8 g/dL (3.4-5.0); CALCIUM 9.1 mg/dL (8.5-10.1); MAGNESIUM 2.1 mg/dL (1.8-2.4); TOTAL BILIRUBIN 0.5 mg/dL (<0.1-1.0); TOTAL PROTEIN 7.5 g/dL (6.4-8.2)
[2020-08-12 05:31] LABS: POTASSIUM 3.6 mmol/L (3.5-5.1)
[2020-08-12 08:00] VITALS: BP 116/62
[2020-08-12 13:20] VITALS: BP 131/59
[2020-08-12 16:33] VITALS: BP 120/61
[2020-08-12 20:00] VITALS: BP 148/77
[2020-08-13] VITALS: BP 132/88
[2020-08-13 04:45] VITALS: BP 149/82
[2020-08-13 07:45] VITALS: BP 149/64
[2020-08-13] MEDS ORDERED: DOXYCYCLINE 10100 M2 PO (10:05)
[2020-08-13] MEDS ORDERED: PREDNISONE 10 M10 M1 PO (10:05)
[2020-08-13 12:02] VITALS: BP 154/69
[2020-08-13 16:48] VITALS: BP 166/74
[2020-08-13 20:00] VITALS: BP 175/79
[2020-08-14 00:52] VITALS: BP 163/67
[2020-08-14 04:13] VITALS: BP 142/44
[2020-08-14 06:39] LABS: HEMATOCRIT 29.7 % (42.0-52.0); HEMOGLOBIN 10.2 gm/dL (14.0-18.0); MCH 31.3 pg (26.0-34.0); MCHC 34.4 g/dL (28.0-37.0); MPV 7.1 fl. (7.2-11.1); RBC 3.26 mil/uL (4.50-6.00); RDW-CV 15.1 % (10.5-14.5); WBC 18.3 thou/uL (4.0-11.0)
[2020-08-14 06:57] LABS: CREATININE 0.8 mg/dL (0.6-1.3); POTASSIUM 4.7 mmol/L (3.5-5.1)
[2020-08-14 08:00] VITALS: BP 158/66
[2020-08-14 11:28] VITALS: BP 165/85
[2020-08-14 15:41] VITALS: BP 149/74
[2020-08-14 20:00] VITALS: BP 170/64
[2020-08-15] VITALS: BP 135/95
[2020-08-15 04:21] LABS: HEMATOCRIT 30.2 % (42.0-52.0); HEMOGLOBIN 10.3 gm/dL (14.0-18.0); MCH 31.1 pg (26.0-34.0); MCHC 34.2 g/dL (28.0-37.0); MPV 7.2 fl. (7.2-11.1); RBC 3.32 mil/uL (4.50-6.00); RDW-CV 15.3 % (10.5-14.5); WBC 17.8 thou/uL (4.0-11.0)
[2020-08-15 04:31] LABS: CREATININE 0.9 mg/dL (0.6-1.3); POTASSIUM 4.6 mmol/L (3.5-5.1)
[2020-08-15 04:50] VITALS: BP 169/83
[2020-08-15 07:45] VITALS: BP 141/74
[2020-08-15 12:00] VITALS: BP 145/72
[2020-08-15 13:42] LABS: ALBUMIN 3.5 g/dL (3.4-5.0); DIRECT BILIRUBIN 0.2 mg/dL (<0.1-0.3); MAGNESIUM 1.9 mg/dL (1.8-2.4); TOTAL BILIRUBIN 0.7 mg/dL (<0.1-1.0); TOTAL PROTEIN 7.1 g/dL (6.4-8.2)
[2020-08-15 13:56] LABS: PROTIME 10.9 Seconds (9.20-11.50)
[2020-08-15 13:57] LABS: APTT 26.2 Seconds (25.0-31.3)
[2020-08-15 14:12] LABS: BE 5.4 mmol/L (-2 to +3); PCO2 41.4 mmHg (35.0-45.0); PO2 94.6 mmHg (75.0-100.0); pH 7.471 (7.340-7.450)
[2020-08-15 16:00] VITALS: BP 143/77
[2020-08-15 21:09] VITALS: BP 162/72
[2020-08-16] VITALS (8 sets, daily range): BP systolic 121–146; BP diastolic 56–84
[2020-08-16 04:56] LABS: HEMATOCRIT 32.8 % (42.0-52.0); MCH 30.5 pg (26.0-34.0); MCHC 33.7 g/dL (28.0-37.0); MCV 90.6 fL (80.0-100.0); MPV 7.3 fl. (7.2-11.1); NUCLEATED RBCS 0 /100WBC; PLATELET COUNT* 158 thou/uL (150-400); RBC 3.62 mil/uL (4.50-6.00); RDW-CV 14.8 % (10.5-14.5); WBC 11.6 thou/uL (4.0-11.0)
[2020-08-16 05:14] LABS: ALBUMIN 3.5 g/dL (3.4-5.0); MAGNESIUM 2.3 mg/dL (1.8-2.4); POTASSIUM 3.9 mmol/L (3.5-5.1); TOTAL BILIRUBIN 0.9 mg/dL (<0.1-1.0); TOTAL PROTEIN 6.8 g/dL (6.4-8.2)
[2020-08-16 06:14] LABS: ABSOLUTE LYMPHOCYTES 0.7 thou/uL (0.8-5.3); ABSOLUTE MONOCYTES 0.1 thou/uL (0.0-1.2); ABSOLUTE NEUTROPHILS 10.8 thou/uL (1.6-8.1)
[2020-08-16 06:15] LABS: ANISOCYTOSIS 1+; PLATELET ESTIMATE ADEQUATE
[2020-08-17] VITALS (115 sets, daily range): BP systolic 62–170; BP diastolic 32–79
[2020-08-17 04:49] LABS: ABSOLUTE LYMPHOCYTES 0.3 thou/uL (0.8-5.3); ABSOLUTE MONOCYTES 0.7 thou/uL (0.0-1.2); ABSOLUTE NEUTROPHILS 18.8 thou/uL (1.6-8.1); BASOPHILS 0.1 %; HEMATOCRIT 28.5 % (42.0-52.0); HEMOGLOBIN 9.8 gm/dL (14.0-18.0); LYMPHOCYTES 1.3 %; MCH 30.9 pg (26.0-34.0); MCHC 34.6 g/dL (28.0-37.0); MCV 89.5 fL (80.0-100.0); MONOCYTES 3.4 %; MPV 7.5 fl. (7.2-11.1); NUCLEATED RBCS 0 /100WBC; PLATELET COUNT* 157 thou/uL (150-400); POLYS 95.2 %; RBC 3.18 mil/uL (4.50-6.00); RDW-CV 14.5 % (10.5-14.5); WBC 19.7 thou/uL (4.0-11.0)
[2020-08-17 05:20] LABS: CALCIUM 8.7 mg/dL (8.5-10.1); MAGNESIUM 2.1 mg/dL (1.8-2.4); POTASSIUM 4.4 mmol/L (3.5-5.1)
[2020-08-17 14:46] LABS: HEMATOCRIT 27.6 % (42.0-52.0); HEMOGLOBIN 9.5 gm/dL (14.0-18.0); MCH 31.5 pg (26.0-34.0); MCHC 34.3 g/dL (28.0-37.0); MCV 91.6 fL (80.0-100.0); MPV 7.3 fl. (7.2-11.1); NUCLEATED RBCS 0 /100WBC; PLATELET COUNT* 157 thou/uL (150-400); RBC 3.01 mil/uL (4.50-6.00); RDW-CV 15.3 % (10.5-14.5); WBC 21.1 thou/uL (4.0-11.0)
[2020-08-17 14:55] LABS: ALBUMIN 2.9 g/dL (3.4-5.0); CALCIUM 8.3 mg/dL (8.5-10.1); CREATININE 0.9 mg/dL (0.6-1.3); POTASSIUM 3.8 mmol/L (3.5-5.1); TOTAL BILIRUBIN 0.6 mg/dL (<0.1-1.0); TOTAL PROTEIN 6.2 g/dL (6.4-8.2)
[2020-08-17 15:04] LABS: INR 1.1; PROTIME 11.2 Seconds (9.20-11.50)
[2020-08-17 15:17] LABS: ABSOLUTE LYMPHOCYTES 0.6 thou/uL (0.8-5.3); ABSOLUTE MONOCYTES 0.8 thou/uL (0.0-1.2); ABSOLUTE NEUTROPHILS 19.6 thou/uL (1.6-8.1); PLATELET ESTIMATE ADEQUATE
[2020-08-17 16:01] LABS: BE 5.4 mmol/L (-2 to +3); PCO2 46.1 mmHg (35.0-45.0); pH 7.436 (7.340-7.450)
[2020-08-18] VITALS (104 sets, daily range): BP systolic 98–127; BP diastolic 37–65
[2020-08-18 04:56] LABS: ABSOLUTE LYMPHOCYTES 0.3 thou/uL (0.8-5.3); ABSOLUTE MONOCYTES 0.4 thou/uL (0.0-1.2); ABSOLUTE NEUTROPHILS 12.7 thou/uL (1.6-8.1); BASOPHILS 0.2 %; HEMATOCRIT 27.6 % (42.0-52.0); HEMOGLOBIN 9.6 gm/dL (14.0-18.0); LYMPHOCYTES 2.3 %; MCH 31.3 pg (26.0-34.0); MCHC 34.7 g/dL (28.0-37.0); MCV 90.4 fL (80.0-100.0); NUCLEATED RBCS 0 /100WBC; PLATELET COUNT* 142 thou/uL (150-400); POLYS 94.5 %; RBC 3.05 mil/uL (4.50-6.00); RDW-CV 15.1 % (10.5-14.5); WBC 13.5 thou/uL (4.0-11.0)
[2020-08-18 05:25] LABS: ANION GAP 1 mmol/L (7-16); BUN 28 mg/dL (7-18); CALCIUM 8.5 mg/dL (8.5-10.1); CHLORIDE 95 mmol/L (98-107); CHOLESTEROL 148 mg/dL (<200); CO2 37 mmol/L (21-32); GLUCOSE 108 mg/dL (70-99); HDL CHOLESTEROL 66 mg/dL (>40); LDL CHOLESTEROL 54 mg/dL (<100); MAGNESIUM 1.9 mg/dL (1.8-2.4); POTASSIUM 3.2 mmol/L (3.5-5.1); SODIUM 133 mmol/L (136-145); TC:HDL 2.2 Ratio (Not establshd); TRIGLYCERIDE 144 mg/dL (<150); TROPONIN-I LEVEL <0.06 ng/mL (<0.06); VLDL 29 mg/dL (<40)
[2020-08-18 05:26] LABS: SERUM ASSESSMENT CLEAR
[2020-08-18 08:54] LABS: BE 7.5 mmol/L (-2 to +3); PCO2 48.2 mmHg (35.0-45.0); pH 7.447 (7.340-7.450)
[2020-08-18 08:57] LABS: PO2 59.5 mmHg (75.0-100.0)
--- NOTE | 2020-08-18 09:56 | CON ---
[address] [address] CONSULTATION Name: WILLIAM ENCARNACION Room: [address] ADM IN M.R.#: [id number] Admission: 08/11/20 Attend Phys: Sapna Arndt MD Discharge: Date of : 49 Report #: [id number] THIS REPORT FOR: cc: Yohannes Jacobsen Russell J. DO Blick, David R. MD [facility] ~ DOC #: [id number] cc: DO Manoj Albarran MD [facility] DATE OF CONSULTATION: 08/17/2020 CARDIOLOGY CONSULTATION HISTORY OF PRESENT ILLNESS: The patient is a 75-year-old white male who I was asked to see in the hospital today after he was noted to have an abnormal ECG. The patient has an extensive and complicated past medical history. Unfortunately, the patient is currently intubated. The history is obtained from the old chart as well as the who is present. The patient has had multiple hospitalizations here at [facility]. He was last admitted here in April of this year with COPD and pneumonia. He has been followed by my partner, Dr. Sridhar Hills, for aortic stenosis and atrial fibrillation. According to the family members, he has been on warfarin for his atrial fibrillation. Apparently Dr. Hills attempted placement of a pacemaker in the past, but had to be removed. A couple of weeks ago, the patient was in home in a chair, smoking. He fell asleep and burned his hand. Two days later, he had increasing shortness of breath and was admitted to [facility] with a COPD exacerbation. He was on BiPAP. However, today he had increasing shortness of breath, had to be intubated. He has not had abnormal ECG and Cardiology consultation is requested. According to family, he denies a history of chest pain. He apparently had a stress test in the past. He has no history of coronary artery disease. Recently, he has been increasing shortness of breath and a cough. He denies any palpitations, syncope, peripheral edema. PAST MEDICAL HISTORY: He has had previous carotid endarterectomy. PAST SURGICAL HISTORY: He has had back surgery, hypertension, hyperlipidemia. MEDICATIONS: On admission included; Namenda for memory loss, Lasix for edema, diltiazem for rate control of his atrial fibrillation, donepezil for confusion, Zaroxolyn for edema. He has been on amiodarone, buspirone, uses inhaler, aspirin, pravastatin. ALLERGIES: HE HAS INTOLERANCE TO CODEINE [place] [address] CONSULTATION Name: WILLIAM ENCARNACION FABBY Room: [address] IN M.R.#: [id number] Admission: 08/11/20 Attend Phys: Sapna Arndt MD Discharge: Date of : 49 Report #: [id number] FAMILY HISTORY: His father had heart problems. SOCIAL HISTORY: He is . He and his live in [place]. He is retired, working as a young. He smokes a pack of cigarettes a day. He has a history of alcohol abuse and quit 10 years ago, used to drink up to 2/5th of vodka a day. REVIEW OF SYSTEMS: No history of stroke. He has COPD, he is on oxygen and inhalers at home. No history of liver disease, kidney disease, cancer, psychiatric illness, chronic skin condition. PHYSICAL EXAMINATION: GENERAL: Revealed a frail, elderly male who is lying in bed on a ventilator. VITAL SIGNS: Blood pressure is 100 systolic, pulse 100. HEENT: He is anicteric. Conjunctivae are pink. Mucosa is moist. NECK: Veins not appear distended. No carotid bruits. CHEST: Revealed distant breath sounds. HEART: Regular rate and rhythm. Grade 4 systolic ejection murmur along the sternal border. ABDOMEN: Soft. EXTREMITIES: Had no edema. SKIN: Cool and dry. NEUROLOGIC: Nonfocal. LABORATORY DATA: His ECG today showed sinus tachycardia. There was left ventricular hypertrophy with repolarization changes as well as a left axis deviation. His x-rays; the patient had a portable chest x-ray today that showed bilateral interstitial infiltrates. CT scan of the chest using a PE protocol 2 days ago showed no pulmonary embolus, emphysematous changes, cardiomegaly, evidence of coronary artery disease. His laboratory; sodium 131, creatinine 0.9. His liver function studies were normal. Albumin 2.9. Troponins all less than 0.06. His white blood cell count 21.1, hemoglobin 9.5. COVID antigen stat test last week was negative. The patient had an echocardiogram performed in March that showed evidence of significant aortic stenosis with a gradient across the aortic valve of 76 mmHg with an ejection fraction of 60%, left atrial enlargement, mild aortic insufficiency, mild mitral regurgitation. IMPRESSION AND RECOMMENDATIONS: 1. Chronic obstructive pulmonary disease. The patient is intubated. 2. Abnormal ECG. No evidence of acute myocardial infarction. Previous stress [address] [address] CONSULTATION Name: WILLIAM ENCARNACION Room: [address] IN Mitesh#: [id number] Admission: 08/11/20 Attend Phys: Sapna Arndt MD Discharge: Date of : 47 Report #: [id number] test showed no significant coronary artery disease. 3. Atrial fibrillation. The patient is on amiodarone and warfarin. Current INR is only 1.1. 4. Tobacco abuse. 5. History of alcohol abuse. 6. Severe aortic stenosis. Recommend Lasix. 7. Degenerative joint disease with previous back surgery. 8. Hypertension. The patient is on a calcium chris. 9. Hyperlipidemia. The patient is on a statin drug. 10. Anemia. Manoj Vázquez MD [facility] DRB/SHERIF <ELECTRONICALLY SIGNED> By: Manoj Vázquez MD, [facility] 08/18/20 0956 1436 2120Darosalie Vázquez MD, [facility] /nt
--- NOTE | 2020-08-18 11:00 | EKG ---
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: : 1945 Requested By: Manoj Vázquez Order Number: [id number] Reading MD: Manoj Vázquez Measurements Intervals [place] Rate: 117 P: 131 SC: 85 QRS: -42 QRSD: 124 T: 127 QT: 370 QTc: 517 Interpretive Statements Sinus tachycardia LVH with IVCD, LAD and secondary repol abnrm Anterior ST elevation, probably due to LVH Prolonged QT interval Compared to ECG 08/11/2020 09:21:2 Sinus rhythm no longer present Electronically Signed On 08-18-2020 11:00:14 CDT by Manoj Vázquez [email or web address] <ELECTRONICALLY SIGNED> By: Manoj Vázquez MD, FACC 08/18/20 1100 11 141 Manoj Vázquez MD, FAC /EPI
--- NOTE | 2020-08-18 13:45 | EKG ---
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1945 Requested By: Manoj Vázquez Order Number: [id number] Reading MD: Manoj Vázquez Measurements Intervals [place] Rate: 57 P: 49 ID: [id number] QRS: -25 QRSD: 115 T: 149 QT: 411 QTc: 401 Interpretive Statements Sinus rhythm LVH with IVCD and secondary repol abnrm Anterolateral infarct, age indeterminate Compared to ECG 08/17/2020 14:12:33 Sinus tachycardia no longer present Prolonged QT interval no longer present Electronically Signed On 08-18-2020 13:44:58 CDT by Manoj Vázquez [email or web address] <ELECTRONICALLY SIGNED> By: Manoj Vázquez MD, [facility] 08/18/20 1344 6 08 Manoj Vázquez MD, FAC /EPI
--- NOTE | 2020-08-18 21:41 | CON ---
[address] [address] CONSULTATION Name: WILLIAM ENCARNACION Room: [address] ADM IN M.R.#: [id number] Admission: 08/11/20 Attend Phys: Sapna Arndt MD Discharge: Date of : 49 Report #: [id number] THIS REPORT FOR: cc: Yohannes Jacobsen Russell J. DO Pervez, Adeel MD ~ DOC #: [id number] Shawn Gonzalez MD DATE OF CONSULTATION: 08/15/2020 REQUESTING PHYSICIAN: Dr. Arndt. INDICATION FOR CONSULTATION: Acute on chronic hypoxemic respiratory failure. HISTORY OF PRESENT ILLNESS: This is a 75-year-old gentleman. He is an active smoker. He does have a history of COPD. He also has atrial fibrillation and severe aortic stenosis. He is not on long-term anticoagulation. He also does take narcotics long-term for pain. At this time, the patient is admitted initially on 08/11, presentation is with increasing shortness of breath. He has also had a cough. He has had some sputum production, detail regarding sputum not available. He has had some back pain as well as chest pain with respiration and coughing. He did not describe upper respiratory complaints. There is no swelling of lower extremities or calf pain. The patient has had nausea. He has vomited as well. He does not have abdominal pain. He does state that he had significant constipation. Since admission, the patient has been treated with prednisone. He has also received Zithromax as well as ceftriaxone; however, his respiratory status has been worsening. He initially was maintaining O2 saturation with around 5 liters of oxygen in place. There has been significant worsening since last night. He had limited use of BiPAP last night as well. This morning, at time of my evaluation, the patient was not maintaining O2 saturations. With 15 liters of oxygen in place, O2 saturation was only 84-85% and therefore, we proceeded to placing him on a heated high-flow nasal cannula. The patient also is tachycardic, heart rate between 110 and 120. He is maintaining blood pressure; in fact, blood pressure is mildly elevated. He was very nauseated, in fact had a small vomitus at the time of my evaluation. REVIEW OF SYSTEMS: Twelve points is negative, except as mentioned above. PAST MEDICAL HISTORY: COPD, on oxygen long-term, not on CPAP or BiPAP long-term, severe aortic stenosis, left ventricular ejection fraction is normal, [place] [address] CONSULTATION Name: WILLIAM ENCARNACION FABBY Room: [address] IN [facility].#: [id number] Admission: 08/11/20 Attend Phys: Sapna Arndt MD Discharge: Date of : 47 Report #: [id number] right heart pressures are in the low 30s, atrial fibrillation. He is on amiodarone long-term. The patient, however, is not on anticoagulation long-term. Longstanding fluid overload, requiring large amounts of diuretics. He is also on a large amount of potassium replacement long-term. Gastroesophageal reflux disease, back pain, chronic has had back surgery, possible history of stroke, right hand surgery, took extractions, hyperlipidemia, hypertension, past history of heavy alcohol intake, bipolar disorder, trigger finger, benign prostatic hypertrophy, chronic urinary retention, sick sinus syndrome, status post pacemaker at one point and subsequent explant, peripheral vascular disease. SOCIAL HISTORY: Extensive history of smoking. He is still smoking now. He has a history of heavy alcohol intake in the past. There is no reported heavy alcohol intake currently. No known history of illegal drug use. He does take narcotics, which I prescribed to him long-term. ALLERGIES: BACTRIM, NUBAIN, CODEINE. FAMILY HISTORY: No pertinent family history known at this time. PHYSICAL EXAMINATION: GENERAL: He was acutely short of breath at the time of my evaluation. VITAL SIGNS: Pulse of 120, blood pressure 140/80, saturating 84% on 15 liters of green high-flow nasal cannula, afebrile with a temperature of 36.6. Body mass index 19.7. HEENT: Head is normocephalic and atraumatic. Pupils are equal and reactive. There is no throat erythema. There is some white material in his throat. NECK: Does not show raised JVP, asymmetry, mass or lymph nodes. CHEST: Symmetrical expansion on inspection and palpation. On auscultation, breath sounds are bilaterally equal, but decreased. Expirations are prolonged. I do not hear any added sounds. HEART: Irregular. There is significant tachycardia. ABDOMEN: Soft and nontender. EXTREMITIES: Lower extremities, no edema, no calf tenderness. SKIN: Dry and intact. NEUROLOGIC: Moves all extremities bilaterally equally and spontaneously with no focal deficit identified. IMAGING: We obtained a stat chest x-ray, which does show right middle/lower lobe collapse/infiltrate. We also subsequently obtained a CTA chest, which is consistent with right middle and lower lobe collapse/infiltrate as well as occlusion, likely secondary to A mucus plug. LABORATORY DATA: The patient's lab work is in [employer] [address] CONSULTATION Name: WILLIAM ENCARNACION Room: [address] IN [facility].#: [id number] Admission: 08/11/20 Attend Phys: Sapna Arndt MD Discharge: Date of : 47 Report #: [id number] He has significant chronic changes as well. ASSESSMENT AND PLAN: 1. Acute on chronic hypoxemic respiratory failure, appears to have a significant mucus plug. Therefore, for now, we will go ahead and place him on BiPAP whenever his nausea and vomiting subsides. I did give him Zofran. Otherwise, if he is having nausea and vomiting, we will use a heated high-flow nasal cannula to maintain O2 saturation. I suspect that he may have been aspirating and therefore, I made him n.p.o. except medications now, but I will request the speech therapist to evaluate this in the morning. If he is alert, subsequently a diet in the morning. I recommended strict aspiration precautions. 2. Chronic obstructive pulmonary disease exacerbation. Steroids significantly increased. We will continue with DuoNeb. 3. Pulmonary infiltrates/pneumonia. There is a large area of infiltrate in the right middle and lower lobe. He has been sufficiently treated with Zithromax, we will discontinue. We will switch ceftriaxone over to vancomycin and Zosyn. We will obtain a sputum culture and nasal swab for methicillin-resistant Staphylococcus aureus, hopefully before these are started. 4. Bronchus intermedius occlusion/mucus plugging. A mass will be possible; however, the findings are more consistent with mucus plugging. They are also new since February of this year. I am placing him on BiPAP as above. We will also give him Mucomyst. If he fails to improve, then bronchoscopy certainly will be a consideration at this time, but the patient, however, is not stable to perform a bronchoscopy unless he is endotracheally intubated first. 5. Suspected aspiration. See discussion above. 6. Severe aortic stenosis and history of fluid overload. I did give him additional Lasix today. We will watch BUN and creatinine closely. He is on daily Lasix as well as metolazone. He is on a fairly large amount of potassium daily as well. We will follow. 7. Atrial fibrillation, paroxysmal/atrial flutter. He is noted to not be on long-term anticoagulation. He is on prophylactic dose Lovenox. There are no pulmonary emboli identified on the CT. Note that he is on amiodarone. 8. Deep venous thrombosis prophylaxis, on Lovenox as above. 9. Gastrointestinal prophylaxis, Protonix. 10. Clostridium difficile prophylaxis, Florastor. 11. Longstanding history of back pain. Note that he is on fentanyl. The patient is critically ill at this time. Total time spent providing critical care to this patient today exceeds 47 minutes[place] [address] CONSULTATION Name: WILLIAM ENCARNACION FABBY Room: [address] IN M.R.#: [id number] Admission: 08/11/20 Attend Phys: Sapna Arndt MD Discharge: Date of : 47 Report #: [id number] AP/ZEINA <ELECTRONICALLY SIGNED> By: Shawn Gonzalez MD 08/18/20 214 1710 2153Ahanh Gonzalez MD /nt
--- NOTE | 2020-08-18 21:41 | OP ---
[address] [address] OPERATIVE REPORT Name: WILLIAM ENCARNACION Room: [address] IN M.R.#: [id number] Admission: 08/11/20 Attend Phys: Sapna Arndt MD Discharge: Date of : 49 Report #: [id number] THIS REPORT FOR: cc: Yohannes Jacobsen Russell J. DO Pervez, Adeel MD ~ DOC #: [id number] Shawn Gonzalez MD DATE OF SURGERY: 08/18/2020 PROCEDURE PERFORMED: Bronchoscopy with bronchial washings. INDICATION FOR PROCEDURE: Occlusion of bronchus intermedius. POSTPROCEDURE DIAGNOSIS: Copious amounts of thick mucus noted to be occluding bronchus intermedius. Some blood clots also noted. No mass was identified. CONSENT: Informed consent was obtained from the patient's today. Yesterday, before intubation, I also discussed with the patient and he also agreed to the procedure. SEDATION: The patient was already on a propofol and fentanyl infusion. In addition, in multiple interventions, a total of 5 mg of Versed and 100 mcg of fentanyl were administered during this procedure. DESCRIPTION OF PROCEDURE: I electively decreased PEEP to 0 on the ventilator, then increased FiO2 to 100% and then proceeded to inserting a lubricated bronchoscope into the endotracheal tube and advancing it to visualize the bronchial tree. We instilled 3 mL of 2% Xylocaine in the trachea and another 3 mL in the right mainstem as well as the left mainstem. There were thick white secretions seen bilaterally. There were some blood clots in the airways also noted. Findings were the most prominent in the right lung where thick white secretions were occluding the bronchus intermedius. I proceeded to obtaining a sample of around 25 mL of thick secretions from the bronchus intermedius after instilling some saline and collected this in a trap. I then proceeded to removing the trap as secretions were thick and it was difficult to perform suction with the trap in place. In multiple increments, a total of 140 mL of saline were instilled. I also instilled a total of 10 mL of 20% Mucomyst solution and continued to perform suction until the bronchus intermedius as well as the right middle and lower lobe bronchi were clear of mucus. On multiple occasions, the bronchoscope got clogged. I removed the bronchoscope and then reinserted on multiple occasions. The secretions seen in the bronchus intermedius were primarily mucus. There were some clots noted more distally in the right lower lobe as well as left lower lobe. I did not identify any active bleeding. However, in order to avoid precipitating any bleeding, [place] [address] OPERATIVE REPORT Name: WILLIAM ENCARNACION FABBY Room: [address] ADM IN M.R.#: [id number] Admission: 08/11/20 Attend Phys: Sapna Arndt MD Discharge: Date of : 49 Report #: [id number] did not fully remove these. Regardless, most of the airways were clean towards the end of the procedure and there was no mass identified. Smaller, but still significant amounts of secretions were also noted in the right upper lobe and also throughout the left bronchial tree. These were also all suctioned out. There were no other additional findings. The patient remained stable throughout the procedure and did not have any complications as a result of this procedure. Specimens collected have been sent to the laboratory and will be followed. We did obtain chest x-rays at the end of the procedure as well, which show significant improvement in atelectasis/right lower lung collapse. Shawn Gonzalez MD AP/SHERIF <ELECTRONICALLY SIGNED> By: Shawn Gonzalez MD 08/18/20 2141 1748 1817Ahanh Gonzalez MD /nt
[2020-08-19] VITALS (17 sets, daily range): BP systolic 96–165; BP diastolic 37–81
[2020-08-19 04:21] LABS: ABSOLUTE BASOPHILS 0.1 thou/uL (0.0-0.2); ABSOLUTE LYMPHOCYTES 0.2 thou/uL (0.8-5.3); ABSOLUTE MONOCYTES 0.4 thou/uL (0.0-1.2); ABSOLUTE NEUTROPHILS 16.8 thou/uL (1.6-8.1); BASOPHILS 0.7 %; EOSINOPHILS 0.2 %; HEMATOCRIT 27.5 % (42.0-52.0); HEMOGLOBIN 9.6 gm/dL (14.0-18.0); LYMPHOCYTES 1.3 %; MCH 31.7 pg (26.0-34.0); MCV 90.7 fL (80.0-100.0); MONOCYTES 2.3 %; MPV 7.3 fl. (7.2-11.1); NUCLEATED RBCS 0 /100WBC; PLATELET COUNT* 134 thou/uL (150-400); POLYS 95.5 %; RBC 3.04 mil/uL (4.50-6.00); RDW-CV 15.1 % (10.5-14.5); WBC 17.6 thou/uL (4.0-11.0)
[2020-08-19 04:37] LABS: ALBUMIN 2.6 g/dL (3.4-5.0); CALCIUM 8.2 mg/dL (8.5-10.1); CREATININE 1.1 mg/dL (0.6-1.3); MAGNESIUM 2.4 mg/dL (1.8-2.4); POTASSIUM 3.8 mmol/L (3.5-5.1); TOTAL BILIRUBIN 0.4 mg/dL (<0.1-1.0); TOTAL PROTEIN 5.9 g/dL (6.4-8.2)
[2020-08-19 04:42] LABS: PHOSPHORUS* 4.1 mg/dL (2.5-4.9)
--- NOTE | 2020-08-19 10:37 | EKG ---
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1945 Requested By: Manoj Vázquez Order Number: [id number] Reading MD: Manoj Vázquez Measurements Intervals [place] Rate: 50 P: 32 OR: 214 QRS: -31 QRSD: 107 T: -29 QT: 581 QTc: 530 Interpretive Statements Sinus bradycardia Borderline prolonged OR interval LVH with secondary repolarization abnormality Anterior ST elevation, probably due to LVH Prolonged QT interval Compared to ECG 08/18/2020 08:17:09 Prolonged QT interval now present Electronically Signed On 08-19-2020 10:37:38 CDT by Manoj Vázquez [email or web address] <ELECTRONICALLY SIGNED> By: Manoj Vázquez MD, FACC 08/19/20 1037 0753 0753 Manoj Vázquez MD, FAC /EPI
[2020-08-19 13:05] LABS: BE 5.6 mmol/L (-2 to +3); PCO2 44.1 mmHg (35.0-45.0); pH 7.453 (7.340-7.450)
[2020-08-20] VITALS (23 sets, daily range): BP systolic 119–168; BP diastolic 15–95
[2020-08-20 05:19] LABS: HEMATOCRIT 28.8 % (42.0-52.0); HEMOGLOBIN 9.9 gm/dL (14.0-18.0); MCH 31.1 pg (26.0-34.0); MCHC 34.3 g/dL (28.0-37.0); MCV 90.8 fL (80.0-100.0); MPV 7.1 fl. (7.2-11.1); NUCLEATED RBCS 0 /100WBC; PLATELET COUNT* 147 thou/uL (150-400); RBC 3.18 mil/uL (4.50-6.00); WBC 17.2 thou/uL (4.0-11.0)
[2020-08-20 05:26] LABS: ALBUMIN 2.7 g/dL (3.4-5.0); CALCIUM 8.3 mg/dL (8.5-10.1); CREATININE 0.8 mg/dL (0.6-1.3); MAGNESIUM 2.1 mg/dL (1.8-2.4); TOTAL BILIRUBIN 0.6 mg/dL (<0.1-1.0); TOTAL PROTEIN 5.9 g/dL (6.4-8.2)
[2020-08-20 05:31] LABS: POTASSIUM 2.6 mmol/L (3.5-5.1)
[2020-08-20 06:25] LABS: ABSOLUTE LYMPHOCYTES 0.2 thou/uL (0.8-5.3); ABSOLUTE MONOCYTES 0.3 thou/uL (0.0-1.2); ABSOLUTE NEUTROPHILS 16.7 thou/uL (1.6-8.1); PLATELET ESTIMATE ADEQUATE
[2020-08-21] VITALS: BP 116/59
[2020-08-21 04:00] VITALS: BP 164/77
[2020-08-21 06:56] LABS: ABSOLUTE LYMPHOCYTES 0.3 thou/uL (0.8-5.3); ABSOLUTE MONOCYTES 0.5 thou/uL (0.0-1.2); ABSOLUTE NEUTROPHILS 20.1 thou/uL (1.6-8.1); BASOPHILS 0.2 %; HEMATOCRIT 31.5 % (42.0-52.0); LYMPHOCYTES 1.2 %; MCH 31.9 pg (26.0-34.0); MCHC 34.8 g/dL (28.0-37.0); MCV 91.5 fL (80.0-100.0); MONOCYTES 2.6 %; MPV 7.6 fl. (7.2-11.1); NUCLEATED RBCS 0 /100WBC; PLATELET COUNT* 175 thou/uL (150-400); RBC 3.44 mil/uL (4.50-6.00); RDW-CV 14.8 % (10.5-14.5); WBC 20.9 thou/uL (4.0-11.0)
[2020-08-21 07:13] LABS: PREALBUMIN 20.6 mg/dL (18.0-35.7)
[2020-08-21 07:52] LABS: ALBUMIN 2.7 g/dL (3.4-5.0); CALCIUM 8.2 mg/dL (8.5-10.1); CREATININE 0.7 mg/dL (0.6-1.3); POTASSIUM 3.2 mmol/L (3.5-5.1); TOTAL BILIRUBIN 0.8 mg/dL (<0.1-1.0)
[2020-08-21 08:36] VITALS: BP 167/84
[2020-08-21 12:00] VITALS: BP 136/75
[2020-08-21 16:00] VITALS: BP 151/64
[2020-08-21 20:50] VITALS: BP 157/69
[2020-08-22] VITALS: BP 182/92
[2020-08-22 04:00] VITALS: BP 138/72
[2020-08-22 04:42] LABS: ABSOLUTE BASOPHILS 0.1 thou/uL (0.0-0.2); ABSOLUTE LYMPHOCYTES 0.3 thou/uL (0.8-5.3); ABSOLUTE MONOCYTES 0.6 thou/uL (0.0-1.2); ABSOLUTE NEUTROPHILS 22.6 thou/uL (1.6-8.1); BASOPHILS 0.4 %; HEMOGLOBIN 11.9 gm/dL (14.0-18.0); LYMPHOCYTES 1.3 %; MCH 30.8 pg (26.0-34.0); MCV 90.4 fL (80.0-100.0); MONOCYTES 2.4 %; MPV 7.3 fl. (7.2-11.1); NUCLEATED RBCS 0 /100WBC; PLATELET COUNT* 208 thou/uL (150-400); POLYS 95.9 %; RBC 3.87 mil/uL (4.50-6.00); RDW-CV 15.1 % (10.5-14.5); WBC 23.6 thou/uL (4.0-11.0)
[2020-08-22 05:04] LABS: ALBUMIN 2.8 g/dL (3.4-5.0); CALCIUM 8.3 mg/dL (8.5-10.1); CREATININE 0.8 mg/dL (0.6-1.3); POTASSIUM 3.9 mmol/L (3.5-5.1); TOTAL PROTEIN 6.2 g/dL (6.4-8.2)
[2020-08-22 07:35] VITALS: BP 183/90
[2020-08-22 12:00] VITALS: BP 140/73
[2020-08-22 16:00] VITALS: BP 157/65
[2020-08-22 20:00] VITALS: BP 174/69
[2020-08-23 00:30] VITALS: BP 165/72
[2020-08-23 04:00] VITALS: BP 192/77
[2020-08-23 05:04] LABS: HEMATOCRIT 37.2 % (42.0-52.0); HEMOGLOBIN 12.7 gm/dL (14.0-18.0); MCH 30.8 pg (26.0-34.0); MCHC 34.1 g/dL (28.0-37.0); MCV 90.4 fL (80.0-100.0); MPV 7.1 fl. (7.2-11.1); RBC 4.12 mil/uL (4.50-6.00); RDW-CV 14.8 % (10.5-14.5)
[2020-08-23 05:16] LABS: CALCIUM 8.6 mg/dL (8.5-10.1); CREATININE 0.8 mg/dL (0.6-1.3); POTASSIUM 3.9 mmol/L (3.5-5.1)
[2020-08-23 08:19] VITALS: BP 187/79
--- NOTE | 2020-08-23 09:44 | EKG ---
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 : 1945 Requested By: Manoj Vázquez Order Number: [id number] Reading MD: Manoj Vázquez Measurements Intervals [place] Rate: 101 P: LA: QRS: -50 QRSD: 121 T: 118 QT: 396 QTc: 514 Interpretive Statements Atrial fibrillation left axis LVH with IVCD, LAD and secondary repol abnrm Prolonged QT interval Compared to ECG 08/19/2020 07:53:55 Sinus bradycardia no longer present Electronically Signed On 08-23-2020 9:43:54 CDT by Manoj Vázquez [email or web address] <ELECTRONICALLY SIGNED> By: Manoj Vázquez MD, [facility] 08/23/20 0943 1828 1828 Manoj Vázquez MD, [facility] /EPI
--- NOTE | 2020-08-23 09:47 | EKG ---
[place] [address] ELECTROCARDIOGRAM REPORT Name: WILLIAM ENCARNACION Room: [address] ADM IN M.R.#: [id number] Admission: 08/11/20 Attend Phys: Sapna Arndt, Discharge: Date of : 49 Date of Service: 08/22/20 0810 Report #: [id number] THIS REPORT FOR: //name// 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 : 1945 Requested By: Manoj Vázquez Order Number: [id number] Kelley MD: Manoj Vázquez Measurements Intervals [place] Rate: 124 P: 108 [place]: 127 QRS: -44 QRSD: 122 T: 115 QT: 336 QTc: 483 Interpretive Statements atrial flutter IVCD, consider atypical RBBB LVH with IVCD and secondary repol abnrm Anterior ST elevation, probably due to LVH Borderline prolonged QT interval Compared to ECG 08/21/2020 18:28:32 Atrial fibrillation no longer present Electronically Signed On 08-23-2020 9:47:13 CDT by Manoj Vázquez [email or web address] <ELECTRONICALLY SIGNED> By: Manoj Vázquez MD, [facility] 08/23/2047 9 9 Manoj Vázquez MD, [facility] /EPI
--- NOTE | 2020-08-23 10:24 | EKG ---
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1945 Requested By: Manoj Vázquez Order Number: [id number] [place] MD: Manoj Vázquez Measurements Intervals [place] Rate: 104 P: -78 WV: 221 QRS: -39 QRSD: 133 T: 127 QT: 380 QTc: 500 Interpretive Statements atrial flutter LVH with IVCD, LAD and secondary repol abnrm Anterior ST elevation, probably due to LVH Borderline prolonged QT interval Compared to ECG 08/19/2020 07:53:55 Sinus bradycardia no longer present ST (T wave) deviation still present Electronically Signed On 08-23-2020 10:24:22 CDT by Manoj Vázquez [email or web address] <ELECTRONICALLY SIGNED> By: Manoj Vázquez MD, [facility] 08/23/20 1024 Manoj Vázquez MD, [facility] /EPI
--- NOTE | 2020-08-23 10:26 | EKG ---
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 : 1945 Requested By: Manoj Vázquez Order Number: [id number] [place] MD: Manoj Vázquez Measurements Intervals [place] Rate: 96 P: DC: QRS: -44 QRSD: 131 T: 117 QT: 450 QTc: 569 Interpretive Statements Atrial fibrillation LVH with IVCD, LAD and secondary repol abnrm Anterior ST elevation, probably due to LVH Prolonged QT interval Compared to ECG 08/20/2020 00:07:34 ST (T wave) deviation still present Electronically Signed On 08-23-2020 10:26:44 CDT by Manoj Vázquez [email or web address] <ELECTRONICALLY SIGNED> By: Manoj Vázquez MD, FAC 08/23/20 1026 0433 0433 Manoj Vázquez MD, [facility] /EPI
[2020-08-23 14:45] VITALS: BP 123/50
[2020-08-23 16:00] VITALS: BP 157/92
--- NOTE | 2020-08-23 16:37 | EKG ---
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1945 Requested By: Sapna Arndt Order Number: [id number] [place] MD: Sridhar Hills Measurements Intervals [place] Rate: 90 P: [place]: QRS: -39 QRSD: 129 T: 117 QT: 477 QTc: 584 Interpretive Statements Atrial fibrillation LVH with IVCD, LAD and secondary repol abnrm Anterior ST elevation, probably due to LVH Prolonged QT interval Compared to ECG 08/20/2020 04:33:56 No significant changes Electronically Signed On 08-23-2020 16:37:39 CDT by Sridhar Hills [email or web address] <ELECTRONICALLY SIGNED> By: Sridhar Hills MD, FACC 08/23/20 1637 0439 0439 Sridhar Hills MD, FAC /EPI
--- NOTE | 2020-08-23 16:38 | EKG ---
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1945 Requested By: Sapna Arndt Order Number: [id number] [place] MD: Sridhar Hills Measurements Intervals [place] Rate: 98 P: RI: QRS: -43 QRSD: 127 T: 124 QT: 394 QTc: 504 Interpretive Statements Atrial fibrillation LVH with IVCD, LAD and secondary repol abnrm Anterior ST elevation, probably due to LVH Prolonged QT interval Compared to ECG 08/20/2020 04:39:16 ST (T wave) deviation still present Electronically Signed On 08-23-2020 16:37:55 CDT by Sridhar Hills [email or web address] <ELECTRONICALLY SIGNED> By: Sridhar Hills MD, FACC 08/23/20 1637 0455 0455 Sridhar Hills MD, FAC /EPI
[2020-08-23 20:00] VITALS: BP 148/88
[2020-08-24] VITALS: BP 144/99
[2020-08-24 04:00] VITALS: BP 151/86
[2020-08-24 04:58] LABS: HEMATOCRIT 39.7 % (42.0-52.0); HEMOGLOBIN 13.5 gm/dL (14.0-18.0); MCH 30.8 pg (26.0-34.0); MCV 90.5 fL (80.0-100.0); MPV 7.5 fl. (7.2-11.1); RBC 4.38 mil/uL (4.50-6.00); RDW-CV 14.8 % (10.5-14.5); WBC 33.6 thou/uL (4.0-11.0)
[2020-08-24 05:33] LABS: CALCIUM 8.7 mg/dL (8.5-10.1); CREATININE 0.9 mg/dL (0.6-1.3); POTASSIUM 3.5 mmol/L (3.5-5.1)
[2020-08-24 07:39] VITALS: BP 170/78
[2020-08-24] MEDS ORDERED: PACERONE 200 M200 M1 PO (13:57)
[2020-08-24] MEDS ORDERED: CARDIZEM60 MG PO (13:57)
[2020-08-24 16:00] VITALS: BP 120/58
--- NOTE | 2020-08-25 15:08 | PATH ---
[address] [address] PATHOLOGY RPT PROCEDURE Name: WILLIAM ENCARNACION Room: [address] IN [facility]#: [id number] Admission: 08/11/20 Date of : 49 Discharge: 08/24/20 Report #: [id number] Path Case #: [id number] Note [facility] Accession Number: [id number] TESTS RESULT FLAG UNITS REF RANGE LAB Clinician Provided Cytology Information No. of containers..01 Other (Miscellaneous) Source: 01 BRONCHUS INTERMEDIUS DIAGNOSIS: 02 BRONCHUS INTERMEDIUS WASHING: INADEQUATE, NO DEFINITE PULMONARY MACROPHAGES OR BRONCHIAL EPITHELIAL CELLS PRESENT-LIMITED BY HEAVY POPULATION OF ACUTE INFLAMMATION. Signed out by: 02 Perry Maxwell MD, Pathologist NPI- [id number] Performed by: 01 Natalie Hassan, Stereoplotter Operator ([facility]) Gross description: 01 2ML, CLOUDY COLORLES, 1 TP 1 AFB /LCS 08/24/2020 0053 Local FLAG LEGEND: L-Low Normal,H-High Normal,LL-Alert Low,HH-Alert High <-Panic Low,>-Panic High,A-Abnormal,AA-Critical Abnormal Performed at: [address] [place] [address] Nasir Gonzalez MD, [address] [place] [address] [address] [facility], [place] [address] Perry Maxwell MD, Specimen Comment: A courtesy copy of this report has been sent to [phone] Specimen Comment: Report sent to Specimen Comment: A duplicate report has been generated due to demographic updates. Performed at: [address], [place], [place] [id number] MD Nasir Gonzalez MD Phone: [phone]
== END 2020-08-24 17:44 | DRG 208 ==
LOC: M.ERS 09:14 → M.TBA-ER 11:02 → M.2W 11:02 → M.ICU 08-17 13:48 → M.2W 08-20 19:17
PROVIDERS: Emergency Medicine Emergency Medical Services; Family Medicine; Internal Medicine; Internal Medicine Critical Care Medicine; ADMIT Internal Medicine; ATTEND Internal Medicine
DX: J15.6 Pneumonia due to other Gram-negative bacteria (principal); J96.21 Acute and chronic respiratory failure with hypoxia; J44.1 Chronic obstructive pulmonary disease with (acute) exacerbation; I50.32 Chronic diastolic (congestive) heart failure; T17.590A Other foreign object in bronchus causing asphyxiation, initial encounter; I48.92 Unspecified atrial flutter; J69.0 Pneumonitis due to inhalation of food and vomit; I25.10 Atherosclerotic heart disease of native coronary artery without angina pectoris; I35.0 Nonrheumatic aortic (valve) stenosis; K21.9 Gastro-esophageal reflux disease without esophagitis; E78.5 Hyperlipidemia, unspecified; E87.6 Hypokalemia; D64.9 Anemia, unspecified; I49.5 Sick sinus syndrome; M19.90 Unspecified osteoarthritis, unspecified site; F17.210 Nicotine dependence, cigarettes, uncomplicated; T23.201A Burn of second degree of right hand, unspecified site, initial encounter; I48.0 Paroxysmal atrial fibrillation; Z20.822 Contact with and (suspected) exposure to COVID-19; I11.0 Hypertensive heart disease with heart failure; I73.9 Peripheral vascular disease, unspecified; F32.9 Major depressive disorder, single episode, unspecified; N40.0 Benign prostatic hyperplasia without lower urinary tract symptoms; Z95.0 Presence of cardiac pacemaker; Z88.6 Allergy status to analgesic agent; Z88.2 Allergy status to sulfonamides; Z88.8 Allergy status to other drugs, medicaments and biological substances; X58.XXXA Exposure to other specified factors, initial encounter; Y93.89 Activity, other specified; Y92.89 Other specified places as the place of occurrence of the external cause; Y99.8 Other external cause status; Z79.899 Other long term (current) drug therapy